=== PATIENT | male | born 1970 | race African-American/Black ===

== ENCOUNTER 2020-04-07 13:34 | Emergency (ER) | payer SELFPAY ==
[~2020-04-07] VITALS: Ht 175 cm; Wt 200.0 kg
[2020-04-07] MEDS ORDERED: cefTRIAXone 500 MG/1.43 ML vial (IM ONLY) IM ONE (15:00)
[2020-04-07] MEDS ORDERED: LIDOCAINE 1% INJ 20 ML 20 ML VIAL INJ ONE (15:00)
[2020-04-07] MEDS ORDERED: AZITHROMYCIN 250 MG TAB (ZITHROMAX) PO ONE (15:00)
--- NOTE | 2020-04-07 15:11 | ED GU-Male ---
General Chief Complaint: Cough/Cold/Flu Symptoms Stated Complaint: COUGH Source: patient Exam Limitations: no limitations History of Present Illness Date Seen by Provider: Apr 07, 2020 Time Seen by Provider: 14:40 Initial Comments The patient presents to the ER by private conveyance with chief complaint that he woke up yesterday with a right swollen testicle. He says is happened once before with trauma when he was a child. He denies ever having STDs. No dysuria discharge or lesions. No fevers chills shortness of air nausea vomiting loss of sense of taste or smell, diarrhea constipation or abdominal pain. No sick contacts. 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 He does have a history of hypertension for which he is on 4 different blood pressure medicines. He remembers lisinopril and amlodipine. He has not establish care with a primary care physician yet. He is sexually active although he says has been a minute. He prefers the company of females. He does claim to have an occasional dry nonproductive cough that he attributes to smoking it is no worse than normal. Allergies and Home Medications Allergies Coded Allergies: No Known Drug Allergies (Unverified , 04/07/20) Home Medications Amlodipine Besylate 5 Mg Tablet, 5 MG PO DAILY Prescribed by: AIYANA MUÑOZ on 04/07/20 1522 Doxycycline Hyclate 100 Mg Tablet, 100 MG PO BID Prescribed by: AIYANA MUÑOZ on 04/07/20 1522 Hydrocodone/Acetaminophen 1 Each Tablet, 1 EACH PO Q6H PRN for PAIN-BREAKTHROUGH Prescribed by: AIYANA MUÑOZ on 04/07/20 1523 Patient Home Medication List Home Medication List Reviewed: Yes Review of Systems Review of Systems Constitutional: No chills, No diaphoresis EENTM: No ear pain, No eye pain Respiratory: No cough, No short of breath Cardiovascular: see HPI; No edema, No Hx of Intervention, No palpitations Gastrointestinal: No abdominal pain, No nausea, No vomiting Genitourinary: see HPI; denies burning, denies discharge, denies dysuria; pain (r teste) All Other Systemes Reviewed Negative Unless Noted: Yes Past Uhnddec-Cluugi-Sstnfm Hx Patient Social History Alcohol Use: Denies Use Recreational Drug Use: No Smoking Status: Current Everyday Smoker Physical Exam Vital Signs Vital Signs - First Documented 04/07/20 15:19 Temp 36.7 Pulse 96 Resp 14 B/P (MAP) 139/67 (91) Pulse Ox 98 O2 Delivery Room Air Capillary Refill : Height, Weight, BMI Height: '" Weight: lbs. oz. kg; BMI Method: General Appearance: no apparent distress, obese HEENT: PERRL/EOMI, pharynx normal Neck: non-tender, full range of motion Cardiovascular: normal peripheral pulses, regular rate, rhythm Respiratory: lungs clear, normal breath sounds, no respiratory distress, no accessory muscle use Gastrointestinal: non tender, soft Male: testicular tenderness (Right enlarged approximately the size of a orange), other (No lesions, discharge, tenderness in the left testicle or penis.) Neurologic/Psychiatric: alert, normal mood/affect, oriented x 3 Skin: normal color, warm/dry Progress/Results/Core Measures Suspected Sepsis SIRS Temperature: Pulse: Respiratory Rate: Blood Pressure / Mean: Results/Orders Lab Results Laboratory Tests Test 04/07/20 14:53 04/07/20 15:02 Range/Units Urine Color YELLOW Urine Clarity CLEAR Urine pH 6.5 5-9 Urine Specific Lindstrom 1.020 1.016-1.022 Urine Protein NEGATIVE NEGATIVE Urine Glucose (UA) NEGATIVE NEGATIVE Urine Ketones NEGATIVE NEGATIVE Urine Nitrite NEGATIVE NEGATIVE Urine Bilirubin NEGATIVE NEGATIVE Urine Urobilinogen 0.2 < = 1.0 MG/DL Urine Leukocyte Esterase NEGATIVE NEGATIVE Urine RBC (Auto) NEGATIVE NEGATIVE Urine RBC NONE /HPF Urine WBC NONE /HPF Urine Squamous Epithelial Cells 5-10 /HPF Urine Crystals NONE /LPF Urine Bacteria NEGATIVE /HPF Urine Casts NONE /LPF Urine Mucus NEGATIVE /LPF Urine Culture Indicated NO My Orders Orders - AIYANA MUÑOZ Ceftriaxone For Im Use (Rocephin For Im (04/07/20 15:00) Azithromycin Tablet (Zithromax Tablet) (04/07/20 15:00) Lidocaine 1% Inj 20 Ml (Xylocaine 1% Inj (04/07/20 15:00) Chlamydia Trachomatis Urine (04/07/20 14:59) Neis Ender Dna Urine Test (04/07/20 14:59) Ua Culture If Indicated (04/07/20 14:59) Syphilis Antibody Screen (04/07/20 15:02) Medications Given in ED Current Medications Medications Dose Ordered Sig/Chrissie Route Start Time Stop Time Status Last Admin Dose Admin Azithromycin 1,000 mg ONCE ONCE PO 04/07/20 15:00 04/07/20 15:01 DC 04/07/20 15:57 1,000 MG Ceftriaxone Sodium 500 mg ONCE ONCE IM 04/07/20 15:00 04/07/20 15:01 DC 04/07/20 15:57 500 MG Lidocaine HCl 1 ml ONCE ONCE INJ 04/07/20 15:00 04/07/20 15:01 DC 04/07/20 15:57 1 ML Vital Signs/I&O 04/07/20 15:19 Temp 36.7 Pulse 96 Resp 14 B/P (MAP) 139/67 (91) Pulse Ox 98 O2 Delivery Room Air Capillary Refill : Progress Note : Time: 15:09 Progress Note We offered a COVID-19 swab and he declined. He does not seem to be having any acute respiratory issues at this time. We will obtain urine, STD testing and give him a dose of Rocephin, azithromycin and put him out on doxycycline for possible orchitis. We offered to transfer him to a facility that had ultrasound available today and encouraged him to go but he declined. We will provide him with a opportunity to get an ultrasound Thursday outpatient and he is okay with that plan. We also offered to refill his amlodipine although initial blood pressure of 130s over 60s is acceptable control. We will give him a list of the local physicians. Departure Impression Primary Impression: Swollen testicle Additional Impression: Hypertension Qualified Codes: I10 - Essential (primary) hypertension Disposition: HOME, SELF-CARE Condition: Stable Departure-Patient Inst. Decision time for Depature: 16:10 Referrals: NO,LOCAL PHYSICIAN (PCP/Family) Primary Care Physician Patient Instructions: Epididymitis (DC), LOCAL PHYSICIAN LIST Add. Discharge Instructions: Drink plenty of fluids. Warm moist heat may be helpful. Tylenol 1000 mg every 8 hours as necessary for pain. Ibuprofen 800 mg every 8 hours as necessary for pain. Hydrocodone 1 tablet every 6 hours as necessary for severe pain. Hydrocodone will cause constipation and drowsiness. Doxycycline 1 tablet twice a day for the next 10 days. It is imperative that you call Thursday and schedule an ultrasound of the testicle. Return to the ER if you are having intractable pain, fever or nausea. Over the next 2 to 3 days someone will call you if your lab tests are positive. Continue taking the antibiotics. All discharge instructions reviewed with patient and/or family. Voiced understanding. Scripts Doxycycline Hyclate (Doxycycline Hyclate) 100 Mg Tablet 100 MG PO BID for 10 Days, #20 TAB 0 Refills Prov: AIYANA MUÑOZ 04/07/20 Amlodipine Besylate (Amlodipine Besylate) 5 Mg Tablet 5 MG PO DAILY for 14 Days, #14 TAB 0 Refills Prov: AIYANA MUÑOZ 04/07/20 Hydrocodone/Acetaminophen (Hydrocodone-Acetamin 5-325 mg) 1 Each Tablet 1 EACH PO Q6H PRN for PAIN-BREAKTHROUGH, #10 TAB 0 Refills Prov: AIYANA MUÑOZ 04/07/20 AIYANA MUÑOZ Apr 07, 2020 15:11
[2020-04-07] MEDS ORDERED: DOXY100T2 PO (15:22)
[2020-04-07] MEDS ORDERED: AMLO-250 PO (15:22)
[2020-04-07] MEDS ORDERED: ACHD5005 PO (15:22)
[2020-04-07 15:24] LABS: BILIRUBIN,URINE NEGATIVE (NEGATIVE); CLARITY,URINE CLEAR; COLOR,URINE YELLOW; GLUCOSE, URINE (UA) NEGATIVE (NEGATIVE); KETONES,URINE NEGATIVE (NEGATIVE); LEUKOCYTE ESTERASE ,URINE NEGATIVE (NEGATIVE); NITRITE,URINE NEGATIVE (NEGATIVE); PH,URINE 6.5 (5-9); PROTEIN,URINE NEGATIVE (NEGATIVE)
[2020-04-07 15:31] LABS: BACTERIA,URINE NEGATIVE /HPF
[2020-04-07 16:40] VITALS: BP 139/67
== END 2020-04-07 16:41 | disposition home or self-care (01) ==
LOC: EDUNIT# 13:34 → ER 13:36
DX: N50.89 Other specified disorders of the male genital organs (principal); I10 Essential (primary) hypertension; E66.9 Obesity, unspecified; F17.200 Nicotine dependence, unspecified, uncomplicated
CPT/HCPCS: 36415; 81000; 86780; 87491; 87591; 99284

== ENCOUNTER → 2020-04-09 | Outpatient (CLI) | payer SELFPAY ==
[~2020-04-09] MED LIST: ACHD5005 PO; AMLO-250 PO; DOXY100T2 PO
--- NOTE | 2020-04-09 11:49 | Diagnostic Imaging Report ---
PROCEDURE: US Scrotum w/ Duplex TECHNIQUE: Multiple realtime carrera images were obtained of the scrotum in various projections bilaterally. Color Doppler images were also obtained. INDICATION: Right testicular swelling. COMPARISON: None. FINDINGS: The testicles are normal in size, shape and echogenicity. The right testis measures 4.0 x 2.6 x 2.7 cm. The left testis measures 4.6 x 2.1 x 2.4 cm. There is normal color flow Doppler signal of both testicles. No focal testicular mass is seen on either side. The right and left epididymides are unremarkable. There is no sonographic evidence of epididymitis. A large hydrocele is seen on the right. IMPRESSION: 1. Large right-sided hydrocele, likely representing the patient's history of right testicular swelling. 2. Unremarkable sonographic appearance of the testicles. No evidence of focal mass or torsion. Dictated by: Dictated on workstation # [id number]
== END ==
LOC: RAD 10:34
PROVIDERS: ATTEND Emergency Medicine
DX: N43.3 Hydrocele, unspecified (principal); N50.89 Other specified disorders of the male genital organs
CPT/HCPCS: 76870

== ENCOUNTER 2020-04-12 14:33 | Emergency (ER) | payer SELFPAY ==
[~2020-04-12] VITALS: Ht 176 cm; Wt 145.0 kg
--- NOTE | 2020-04-12 15:01 | ED GU-Male ---
General Stated Complaint: TESTICULAR SWELLING Source: patient Exam Limitations: no limitations History of Present Illness Date Seen by Provider: Apr 12, 2020 Time Seen by Provider: 14:53 Initial Comments Patient is a 49-year-old male who presents to the emergency department today with a chief complaint of significant scrotal swelling. Patient was seen here in the emergency department 1 week ago and had an outpatient ultrasound performed on 09 April. This ultrasound showed a right-sided hydrocele very large with Doppler signal to both testicles no evidence of testicular mass and normal epididymides bilaterally. This hydrocele is primarily right-sided. Patient states that he is not really having significant worsening of his pain but it is quite uncomfortable. He states he has been wearing briefs style underwear. He is not been taking any NSAIDs for discomfort. Patient states he has been using ice to the groin. He is currently finishing up a prescription of doxycycline. No other complaints of illness or injury. All other review of systems reviewed and negative except as stated. Timing/Duration: getting worse Severity/Quality: moderate Location: scrotal Radiation: none Activities at Onset: none Prior Genitourinary Problems: none Sexual [place] History: not active Associated Symptoms: denies symptoms Allergies and Home Medications Allergies Coded Allergies: No Known Drug Allergies (Unverified , 04/07/20) Home Medications Amlodipine Besylate 5 Mg Tablet, 5 MG PO DAILY Prescribed by: AIYANA MUÑOZ on 04/07/20 1522 Doxycycline Hyclate 100 Mg Tablet, 100 MG PO BID Prescribed by: AIYANA MUÑOZ on 04/07/20 1522 Hydrocodone/Acetaminophen 1 Each Tablet, 1 EACH PO Q6H PRN for PAIN-BREAKTHROUGH Prescribed by: AIYANA MUÑOZ on 04/07/20 1523 Patient Home Medication List Home Medication List Reviewed: Yes Review of Systems Review of Systems Constitutional: see HPI EENTM: no symptoms reported Respiratory: no symptoms reported Cardiovascular: no symptoms reported Gastrointestinal: no symptoms reported Genitourinary: other (Scrotal swelling) Musculoskeletal: no symptoms reported Skin: no symptoms reported Past Dfrkzor-Grxtll-Zlkmml Hx Patient Social History Type Used: Cigarettes Recent Foreign Travel: No Contact w/Someone Who Travel: No Recent Hopitalizations: No Seasonal Allergies Seasonal Allergies: No Past Medical History Surgeries: No Respiratory: No Cardiac: Yes Hypertension Neurological: No Genitourinary: No Gastrointestinal: No Musculoskeletal: No Endocrine: No HEENT: No Cancer: No Psychosocial: No Integumentary: No Blood Disorders: No Physical Exam Vital Signs Capillary Refill : Height, Weight, BMI Height: '" Weight: lbs. oz. kg; 65.00 BMI Method: General Appearance: WD/WN, no apparent distress Cardiovascular: regular rate, rhythm Respiratory: lungs clear, normal breath sounds Gastrointestinal: non tender, soft Male: normal genitalia, other (Significantly swollen scrotum, it is difficult to palpate either testes secondary to the amount of edema present; no significant tenderness on palpation) Extremities: non-tender, normal inspection, no pedal edema Neurologic/Psychiatric: alert, normal mood/affect Skin: normal color, warm/dry Progress/Results/Core Measures Suspected Sepsis SIRS Temperature: Pulse: Respiratory Rate: Blood Pressure / Mean: Results/Orders Vital Signs/I&O Capillary Refill : Progress Note : Time: 15:10 Progress Note Discussed with Dr. Zepeda; he recommends another ultrasound to further evaluate the testicles; he did say that I could offer aspiration of the hydrocele to the patient. The patient respectfully declined. He also does not want to be sent to another facility for an testicular ultrasound today. He prefers to wait for another couple of days and see what happens. The patient has not been on NSAIDs I recommended that he start taking these. I am going to give him contact information for urology for Thursday to call for an appointment. The patient is comfortable with this plan of care. I told him if things worsen over the course of the next 24 to 48 hours to please come back to the emergency room or make his way to [place] to [facility] or [facility] as they have ultrasound 24 hours a day. He verbalizes understanding of this, all questions are sought and answered. Patient is stable for discharge. Departure Communication (Admissions) Time/Spoke to Consulting Phy: 15:[address] Zepeda; will see as an outpatient Impression Primary Impression: Hydrocele in adult Disposition: 01 HOME, SELF-CARE Condition: Stable (ERASED) Departure-Patient Inst. Decision time for Depature: 15:09 Referrals: NO,LOCAL PHYSICIAN (PCP) Primary Care Physician JEN CONDE MD Patient Instructions: Hydrocele Add. Discharge Instructions: Take [id number] Aleve, 2 pills in the morning with food and 2 pills at night with food. Continue to wear tight briefs underwear. You can apply ice packs for 20 minutes at a time 3-4 times a day as well. Finish off your antibiotics as prescribed. I have given you an outpatient order for a repeat ultrasound on Thursday here at this facility. But should you have any significant worsening over the next few days please come back to the emergency room for reevaluation and transfer to a center that has ultrasound capabilities and urology. BERYL KIRAN MD Apr 12, 2020 15:00
[2020-04-12 15:02] VITALS: BP 185/102
== END 2020-04-12 15:20 | disposition home or self-care (01) ==
LOC: EDUNIT# 14:33 → ER 14:36
DX: N43.3 Hydrocele, unspecified (principal); I10 Essential (primary) hypertension
CPT/HCPCS: 99281

== ENCOUNTER 2022-03-16 11:40 | Inpatient (IN) | payer SELFPAY ==
[~2022-03-16] VITALS: Ht 170.1 cm; Wt 163.0 kg
[2022-03-16] MEDS ORDERED: NS IV 500 ML 500 ML IV ONE (12:00)
[2022-03-16 12:03] LABS: BASOPHILS % (AUTO) 0 % (0-10); EOSINOPHILS # (AUTO) 0.3 10^3/uL (0.0-0.3); EOSINOPHILS % (AUTO) 4 % (0-10); HEMATOCRIT 45 % (40-54); HEMOGLOBIN 15.4 g/dL (13.3-17.7); LYMPHOCYTES % (AUTO) 15 % (12-44); MEAN CORPUSCULAR HEMOGLOBIN 31 pg (25-34); MEAN CORPUSCULAR HGB CONC 34 g/dL (32-36); MEAN CORPUSCULAR VOLUME 91 fL (80-99); MEAN PLATELET VOLUME 10.1 fL (9.0-12.2); MONOCYTES # (AUTO) 0.8 10^3/uL (0.0-1.0); MONOCYTES % (AUTO) 12 % (0-12); NEUTROPHILS # (AUTO) 4.6 10^3/uL (1.8-7.8); NEUTROPHILS % (AUTO) 69 % (42-75); PLATELET COUNT 171 10^3/uL (130-400); WHITE BLOOD COUNT 6.7 10^3/uL (4.3-11.0)
[2022-03-16] MEDS ORDERED: BENZONATATE 100 MG (TESSALON) CAPSULE PO STA (12:09)
--- NOTE | 2022-03-16 12:09 | ED Respiratory ---
General Chief Complaint: Respiratory Problems Stated Complaint: DIFFICULTY BREATHING Nursing Triage Note: COLD/COUGH FOR 3 WEEKS IN LAST 2 DAYS STARTED HAVING EXTREME SOB. History of Present Illness Date Seen by Provider: Mar 16, 2022 Time Seen by Provider: 11:40 Initial Comments 51-year-old -Latvian male presents for shortness of breath and cough that has been occurring for the last 3 weeks. He reports over the last 2 days he has had extreme shortness of breath. He has a history of sleep apnea, no other reported medical conditions. Denies chest pain, asthma or chronic respiratory problems. He does not have a primary care provider. He reports inability to sleep last night and did not use his CPAP. He does have a produ ctive cough. His initial SaO2 on room air was 81%, attempted nasal cannula at 3 to 4 L with minimal improvement so converted to oxygen mask at 5 L with SaO2 93- 95%. He denies having COVID or influenza vaccination. Timing/Duration: getting worse Severity: moderate Prior Episodes/Possible Cause: occasional episodes Modifying Factors: Improves With Coughing, Improves With Lying Down, Improves With Rest Associated Symptoms: No chest pain/soreness; cough (Productive); No dizziness, No earache, No facial pain, No fever/chills, No headache, No lightheadedness; muscle aches; No nasal congestion, No nasal drainage; shortness of breath; No sinus infection, No sore throat, No wheezing Allergies and Home Medications Allergies Coded Allergies: No Known Drug Allergies (Unverified , 03/16/22) Patient Home Medication List Home Medication List Reviewed: Yes Amlodipine Besylate (Amlodipine Besylate) 5 Mg Tablet, 5 MG PO DAILY Prescribed by: AIYANA MUÑOZ on 04/07/201521 Doxycycline Hyclate (Doxycycline Hyclate) 100 Mg Tablet, 100 MG PO BID Prescribed by: AIYANA MUÑOZ on 04/07/20 152 Hydrocodone/Acetaminophen (Hydrocodone-Acetamin 5-325 mg) 1 Each Tablet, 1 EACH PO Q6H PRN for PAIN-BREAKTHROUGH Prescribed by: AIYANA MUÑOZ on 04/07/20 152 Review of Systems Review of Systems Constitutional: see HPI, malaise, weakness EENTM: see HPI, no symptoms reported Respiratory: see HPI, cough, dyspnea on exertion, phlegm, short of breath Cardiovascular: no symptoms reported, see HPI; No chest pain Gastrointestinal: no symptoms reported, see HPI; No abdominal pain, No constipation, No diarrhea; loss of appetite; No nausea, No vomiting Genitourinary: no symptoms reported, see HPI Musculoskeletal: no symptoms reported, see HPI Skin: no symptoms reported, see HPI All Other Systems Reviewed Negative Unless Noted: Yes Past Afftuhf-Tvsbad-Gxtcsp Hx Patient Social History Tobacco Use?: Yes Tobacco type used: Cigarettes Use of E-Cig and/or Vaping dev: No Substance use?: No Alcohol Use?: No Pt feels they are or have been: No Immunizations Up To Date Influenza Vaccine Up-to-Date: No; Not Current First/Initial COVID19 Vaccinat: NOT VACCINATED Seasonal Allergies Seasonal Allergies: No Past Medical History Surgery/Hospitalization HX: SLEEP APNEA C PAP Surgeries: No Respiratory: No Cardiac: Yes Hypertension Neurological: No Genitourinary: No Gastrointestinal: No Musculoskeletal: No Endocrine: No HEENT: No Cancer: No Psychosocial: No Integumentary: No Blood Disorders: No Family Medical History Reviewed Nursing Family Hx Physical Exam Vital Signs - First Documented 03/16/22 11:42 Temp 36.3 Pulse 112 Resp 22 B/P (MAP) 146/92 (110) Pulse Ox 93 O2 Delivery Room Air O2 Flow Rate 5.00 Capillary Refill : Height: '" Weight: lbs. oz. kg; 54.00 BMI Method: General Appearance: mild distress, obese Eyes: Bilateral Eye Normal Inspection, Bilateral Eye PERRL, Bilateral Eye EOMI HEENT: PERRL/EOMI, normal ENT inspection, TMs normal, pharynx normal Neck: non-tender, full range of motion, supple, normal inspection Respiratory: chest non-tender, decreased breath sounds Cardiovascular: normal peripheral pulses, regular rate, rhythm, tachycardia (100-108) Gastrointestinal: normal bowel sounds, non tender, soft, distended Extremities: normal range of motion (with mild limitations due to body habitus), non-tender, pedal edema (2+) Neurologic/Psychiatric: no motor/sensory deficits, alert, normal mood/affect, oriented x 3 Skin: normal color, warm/dry Progress/Results/Core Measures Suspected Sepsis SIRS Temperature: Pulse: 112 Respiratory Rate: 22 Laboratory Tests 03/16/22 11:50: White Blood Count 6.7 Blood Pressure 146 /92 Mean: 110 Laboratory Tests 03/16/22 11:50: Creatinine 1.28, INR Comment 1.0, Platelet Count 171, Total Bilirubin 1.0 Results/Orders Lab Results Laboratory Tests Test 03/16/22 11:45 03/16/22 11:50 03/16/22 12:20 Range/Units Influenza Type A (RT-PCR) Not Detected Not Detecte Influenza Type B (RT-PCR) Not Detected Not Detecte SARS-CoV-2 RNA (RT-PCR) Not Detected Not Detecte White Blood Count 6.7 4.3-11.0 10^3/uL Red Blood Count 4.97 4.30-5.52 10^6/uL Hemoglobin 15.4 13.3-17.7 g/dL Hematocrit 45 40-54 % Mean Corpuscular Volume 91 80-99 fL Mean Corpuscular Hemoglobin 31 25-34 pg Mean Corpuscular Hemoglobin Concent 34 32-36 g/dL Red Cell Distribution Width 13.6 10.0-14.5 % Platelet Count 171 130-400 10^3/uL Mean Platelet Volume 10.1 9.0-12.2 fL Immature Granulocyte % (Auto) 0 % Neutrophils (%) (Auto) 69 42-75 % Lymphocytes (%) (Auto) 15 12-44 % Monocytes (%) (Auto) 12 0-12 % Eosinophils (%) (Auto) 4 0-10 % Basophils (%) (Auto) 0 0-10 % Neutrophils # (Auto) 4.6 1.8-7.8 10^3/uL Lymphocytes # (Auto) 1.0 1.0-4.0 10^3/uL Monocytes # (Auto) 0.8 0.0-1.0 10^3/uL Eosinophils # (Auto) 0.3 0.0-0.3 10^3/uL Basophils # (Auto) 0.0 0.0-0.1 10^3/uL Immature Granulocyte # (Auto) 0.0 0.0-0.1 10^3/uL Prothrombin Time 13.4 12.2-14.7 SEC INR Comment 1.0 0.8-1.4 Activated Partial Thromboplast Time 29 24-35 SEC Sodium Level 143 135-145 MMOL/L Potassium Level 3.5 L 3.6-5.0 MMOL/L Chloride Level 105 98-107 MMOL/L Carbon Dioxide Level 25 21-32 MMOL/L Anion Gap 13 5-14 MMOL/L Blood Urea Nitrogen 12 7-18 MG/DL Creatinine 1.28 0.60-1.30 MG/DL Estimat Glomerular Filtration Rate 69 BUN/Creatinine Ratio 9 Glucose Level 170 H 70-105 MG/DL Calcium Level 8.7 8.5-10.1 MG/DL Corrected Calcium 8.8 8.5-10.1 MG/DL Total Bilirubin 1.0 0.1-1.0 MG/DL Aspartate Amino Transf (AST/SGOT) 26 5-34 U/L Alanine Aminotransferase (ALT/SGPT) 40 0-55 U/L Alkaline Phosphatase 86 40-136 U/L Lactate Dehydrogenase 225 H 125-220 U/L C-Reactive Protein High Sensitivity 1.18 H 0.00-0.50 MG/DL B-Type Natriuretic Peptide 193.8 H <100.0 PG/ML Total Protein 7.3 6.4-8.2 GM/DL Albumin 3.9 3.2-4.5 GM/DL Procalcitonin 0.07 <0.10 NG/ML Blood Gas Puncture Site LW Blood Gas Patient Temperature 36.6 Arterial Blood pH 7.34 *L 7.37-7.43 Arterial Blood Partial Pressure CO2 57 H 35-45 MMHG Arterial Blood Partial Pressure O2 61 L 79-93 MMHG Arterial Blood HCO3 30 H 23-27 MMOL/L Arterial Blood Total CO2 31.4 H 21.0-31.0 MMOL/L Arterial Blood Oxygen Saturation 94 94-100 % Arterial Blood Base Excess 4.1 H -2.5-2.5 MMOL/L Jed Test YES-POS Blood Gas Ventilator Setting NO Blood Gas Inspired Oxygen 2L My Orders Orders - PREET LA Cbc With Automated Diff (03/16/22 11:50) Comprehensive Metabolic Panel (03/16/22 11:50) Procalcitonin (Pct) (03/16/22 11:50) Hs C Reactive Protein (03/16/22 11:50) LDH (03/16/22 11:50) Sputum Culture (03/16/22 11:50) Ekg Tracing (03/16/22 11:50) Influenza A And B By Pcr (03/16/22 11:50) Chest 1 View, Ap/Pa Only (03/16/22 11:50) Covid-19 Suspect Update (03/16/22 11:50) Covid 19 Inhouse Test (03/16/22 11:50) Bnp Dieter (03/16/22 11:50) Protime With Inr (03/16/22 11:50) Partial Thromboplastin Time (03/16/22 11:50) Arterial Blood Gas (03/16/22 11:53) Ed Iv/Invasive Line Start (03/16/22 11:53) Ns Iv 500 Ml (Sodium Chloride 0.9%) (03/16/22 12:00) Albuterol Inhaler (Albuterol) (03/16/22 14:00) Benzonatate Capsule (Tessalon Perles) (03/16/22 12:09) Albuterol Inhaler (Albuterol) (03/16/22 12:14) Ua Culture If Indicated (03/16/22 12:48) Methylprednisolone Sod Succ (Solu-Medrol (03/16/22 13:00) Medications Given in ED Current Medications Medications Dose Ordered Sig/Chrissie Route Start Time Stop Time Status Last Admin Dose Admin Sodium Chloride 500 ml @ 0 mls/hr Q0M ONCE IV 03/16/22 12:00 03/16/22 12:01 DC 03/16/22 12:18 500 MLS/HR Vital Signs/I&O 03/16/22 03/16/22 11:42 11:42 Temp 36.3 Pulse 112 Resp 22 B/P (MAP) 146/92 (110) Pulse Ox 93 O2 Delivery Room Air OxyMask O2 Flow Rate 5.00 Capillary Refill : Blood Pressure Mean: 110 Progress Note : Time: 11:40 Progress Note Patient seen and evaluated, stabilized with oxime mask keeping SaO2 greater than 90%. Will obtain labs, chest x-ray, ABGs. Respiratory therapy noted high for possible BiPAP. 1200 SaO2 continuing at 96 to 98% with oxime mask, will convert to nasal cannula at 2 L. Patient able to maintain greater than 95%, decreased to 1 L and continuing to be stable. Heart rate has been decreased to 95-100. 1220 Ventolin inhaler, 2 puffs. Noted better air movement but wheezing. B/P with wrist cuff 230s/140s, with extra large arm cuff 160s/110s. Will give Lasix and Hydralazine, then re-assess before additional B/P meds. 1240 Dr. Mcfarlane in ED to see patient. Will admit to ICU. COVID, Flu negative. No Pneumonia per CXR. Glucose 170 and patient reports no food or fluids for last 24 hours. 1320 patient urinated multiple times after Lasix, SaO2 would decrease to upper 80s with mobility but remained 92-95% with NC at 1L and rest. Patient denies any complaints. 1400 patient transferred to ICU. ECG Initial ECG Impression Date: Mar 16, 2022 Initial ECG Impression Time: 11:54 Initial ECG Rate: 104 Initial ECG Rhythm: S.Tach Initial ECG Intervals: Normal Initial ECG Intervals GA 148, QRS D 92, QT 377, QTc 437. [place] P 70, RR 105, T 90. Initial ECG Impression: Normal Initial ECG Comparisson: No Previous ECG Available Diagnostic Imaging Diagonstic Imaging: Xray Plain Films/CT/US/NM/MRI: chest Comments NAME: ASIF ENRIQUEZ [facility] REC#: [id number] PT STATUS: REG ER : 1970 PHYSICIAN: PREET LA ADMIT DATE: 03/16/22/ER Draft Date of Exam:03/16/22 CHEST 1 VIEW, AP/PA ONLY EXAMINATION: Chest 1 view HISTORY: Hypoxia, cough, SOA COMPARISON: None available. FINDINGS: Heart size and pulmonary vasculature are mildly enlarged. There are diffuse interstitial opacities throughout both lungs. No pleural effusion or pneumothorax. The osseous structures are intact. IMPRESSION: 1. Cardiomegaly and pulmonary vasculature congestion with diffuse interstitial opacities are both lungs. Findings can be seen with pulmonary edema or atypical infection. Dictated on workstation # [id number] Dict: 03/16/22 1227 Trans: 03/16/22 1238 [id number] Interpreted by: RIKI GOMEZ DO Electronically signed by: Departure Impression Primary Impression: Hypoxemia Additional Impressions: Cough Qualified Codes: R05.1 - Acute cough Hypertension Qualified Codes: I10 - Essential (primary) hypertension Sleep apnea Qualified Codes: G47.30 - Sleep apnea, unspecified Obesities, morbid Hyperglycemia Disposition: 09 ADMITTED INPATIENT Condition: Stable Admissions Decision to Admit/Date: Mar 16, 2022 Time/Decision to Admit Time: 12:30 Departure-Patient Inst. Referrals: [facility]/Isabel NO,LOCAL PHYSICIAN (PCP) Primary Care Physician PREET LA Mar 16, 2022 12:09
[2022-03-16] MEDS ORDERED: RT-ALBUTEROL HFA 8.5 GM INHALER IH ONE (12:14)
[2022-03-16 12:15] LABS: PROTHROMBIN TIME PATIENT 13.4 SEC (12.2-14.7)
[2022-03-16] MEDS: RT-ALBUTEROL HFA 8.5 GM INHALER IH SCH ×3 (12:19→22:56)
[2022-03-16 12:23] LABS: ALBUMIN 3.9 GM/DL (3.2-4.5); CALCIUM 8.7 MG/DL (8.5-10.1); CREATININE SERUM 1.28 MG/DL (0.60-1.30); POTASSIUM 3.5 MMOL/L (3.6-5.0); TOTAL PROTEIN 7.3 GM/DL (6.4-8.2)
[2022-03-16 12:30] LABS: ABG BASE EXCESS 4.1 MMOL/L (-2.5-2.5); ABG OXYGEN SATURATION 94 % (94-100); ABG PCO2 57 MMHG (35-45); ABG PO2 61 MMHG (79-93); ABG TCO2 31.4 MMOL/L (21.0-31.0)
[2022-03-16 12:32] LABS: ALLENS TEST YES-POS; INSPIRED O2 2L; PATIENT TEMP 36.6; VENTILATOR NO
[2022-03-16 12:37] LABS: ABG PH 7.34 (7.37-7.43)
--- NOTE | 2022-03-16 12:38 | Diagnostic Imaging Report ---
EXAMINATION: Chest 1 view HISTORY: Hypoxia, cough, SOA COMPARISON: None available. FINDINGS: Heart size and pulmonary vasculature are mildly enlarged. There are diffuse interstitial opacities throughout both lungs. No pleural effusion or pneumothorax. The osseous structures are intact. IMPRESSION: 1. Cardiomegaly and pulmonary vasculature congestion with diffuse interstitial opacities are both lungs. Findings can be seen with pulmonary edema or atypical infection. Dictated by: Dictated on workstation # [id number]
[2022-03-16] MEDS ORDERED: hydrALAZINE (APESOLINE) 20 MG/ML VIAL IV STA (12:56)
[2022-03-16] MEDS ORDERED: methylPREDNISolone 125 MG (Solu-MEDROL) VIAL IVP ONE (13:00)
[2022-03-16] MEDS ORDERED: LABETALOL HCL 20 MG/4 ML VIAL IV STA (13:00)
[2022-03-16] MEDS ORDERED: FUROSEMIDE 40 MG/4 ML INJ (LASIX) IVP ONE ×2 (13:00→18:00)
[2022-03-16] MEDS ORDERED: RT-ALBUTEROL/IPRATROPIUM 3 ML (DUONEB) VIAL INH STA (13:05)
[2022-03-16 13:34] LABS: BILIRUBIN,URINE NEGATIVE (NEGATIVE); CLARITY,URINE CLEAR; COLOR,URINE YELLOW; GLUCOSE, URINE (UA) TRACE (NEGATIVE); KETONES,URINE NEGATIVE (NEGATIVE); LEUKOCYTE ESTERASE ,URINE NEGATIVE (NEGATIVE); NITRITE,URINE NEGATIVE (NEGATIVE); PH,URINE 5.5 (5-9); PROTEIN,URINE TRACE (NEGATIVE)
[2022-03-16 13:45] LABS: BACTERIA,URINE FEW /HPF; RBC,URINE 0-2 /HPF; SQUAMOUS EPITHELIAL CELL,UR 0-2 /HPF
[2022-03-16] MEDS ORDERED: MELATONIN 3 MG TABLET PO PRN (14:15)
[2022-03-16] MEDS ORDERED: diphenhydrAMINE 50 MG/ML INJ (BENADRYL) IVP PRN (14:15)
[2022-03-16] MEDS ORDERED: CALCIUM CARBONATE 500 MG (TUMS) TAB.CHEW PO PRN (14:15)
[2022-03-16] MEDS ORDERED: ONDANSETRON 4 MG (ZOFRAN) ORAL DISSOLVE TAB PO PRN (14:15)
[2022-03-16] MEDS ORDERED: ONDANSETRON 4 MG/2 ML (SDV) Z0FRAN IV PRN (14:15)
[2022-03-16] MEDS ORDERED: polyethylene glycoL POWDER 17 GM (MIRALAX) PACK PO PRN (14:15)
[2022-03-16] MEDS ORDERED: NS IV 500 ML 500 ML IV PRN (14:15)
[2022-03-16] MEDS ORDERED: ANTACID SUSP 30 ML UDC (MYLANTA) PO PRN (14:15)
[2022-03-16] MEDS ORDERED: ACETAMINOPHEN 325 MG TABLET PO PRN (14:15)
[2022-03-16] MEDS ORDERED: LACTULOSE SYRUP 10GM/15ML (ENULOSE) 30ML UDC PO PRN (14:15)
[2022-03-16] MEDS ORDERED: BISACODYL 10 MG SUPP (DULCOLAX) PR PRN (14:15)
[2022-03-16] MEDS ORDERED: PHARMACY TO DOSE SQ SCH (14:15)
[2022-03-16] MEDS ORDERED: diphenhydrAMINE 25 MG TAB (BENADRYL) PO PRN (14:15)
[2022-03-16] MEDS ORDERED: MILK OF MAGNESIA 400 MG/5 ML 30 ML UDC PO PRN (14:15)
[2022-03-16 15:07] VITALS: BP 155/87
[2022-03-16] MEDS: inSUlin ASPART (NovoLOG) 1 UNIT/0.01 ML (CHARGE PER UNIT) SC SCH ×2 (17:55→20:40)
[2022-03-16] MEDS: methylPREDNISolone 40 MG/ML (Solu-MEDROL) VIAL IV SCH (17:56)
[2022-03-16] MEDS: hydrALAZINE (APESOLINE) 20 MG/ML VIAL IV PRN (17:56)
[2022-03-16] MEDS: ENOXAPARIN 60 MG/0.6 ML (LOVENOX) SYR SC SCH (17:56)
--- NOTE | 2022-03-16 18:31 | Tele-ICU Consult ---
History of Present Illness History of Present Illness Date Seen by Provider: Mar 16, 2022 Time Seen by Provider: 15:32 Date of Admission (Tele-ICU Physician , consultation as per request of PCP Service provided via interactive audio and video telecommunadsquare E-CARE system to a patient admitted to ICU bed in [facility]. Available chart/ vitals / labs / Images reviewed H&P is from ER notes Patient's information available about PMH, Shx, Fhx allergy reviewed inEMR. ROS as per chart and RN report Now in ICU, hemodynamically stable Video assessment done using teleICU camera, rest of exam as per RN Discussed with RN. Consultants: Hospital course: A/P HYpoxia on admission and dyspnea - presumed CHF - responded to lasix well - wheezing reported in ER - as per chart , started on steroids Hypertension - BP in ER 230s/140- improved Reported h/o LIO mild resp acidosis on admission - follow closely , CPAP noctrnal Lines : , (Central Line Necessity Reviewed) [place]: OG: Nutrition: Analgesia: Anxiety/ delirium VTE Prophylaxis: tanika 60 q12 Stress Ulcer Prophylaxis: Plans in collaboration with bedside consultants and IM MDs. Discussed with RN to reach out if any questions or concerns A total of 20 minutes of critical care time was devoted to this patient today, required to treat and/or prevent further deterioration of critical care condition ( as above ) . I am remotely monitoring this patient from another state. I am unable to do the bedside exam, and history/physical and pertinent information is taken from other notes in the computer and bedside staff. . Allergies and Home Medications Allergies Coded Allergies: No Known Drug Allergies (Unverified , 03/16/22) Home Medications Amlodipine Besylate 5 Mg Tablet, 5 MG PO DAILY Prescribed by: AIYANA MUÑOZ on 04/07/20 1522 Doxycycline Hyclate 100 Mg Tablet, 100 MG PO BID Prescribed by: AIYANA MUÑOZ on 04/07/20 1522 Hydrocodone/Acetaminophen 1 Each Tablet, 1 EACH PO Q6H PRN for PAIN-BREAKTHROUGH Prescribed by: AIYANA MUÑOZ on 04/07/20 1523 Past Medical/Social/Family Hx Patient Social History Tobacco Use?: Yes Tobacco type used: Cigarettes Smoking Status: Current Everyday Smoker Use of E-Cig and/or Vaping dev: No Substance use?: No Alcohol Use?: No Pt stated abuse/neglect: No Immunizations Up To Date Influenza Vaccine Up-to-Date: No; Not Current First/Initial COVID19 Vaccinat: NOT VACCINATED Current Status Advance Directives: No Communicates: Verbally Primary Language: Ukrainian Preferred Spoken Language: Ukrainian Is interpretation needed?: No Implanted or Applied Medical D: None Review of Systems Constitutional: see HPI Focused Exam Height, Weight, BMI Height: '" Weight: lbs. oz. kg; 54.84 BMI Method: Exam Exam Patient acknowledged, consented, and participated in this virtual visit which was conducted using real time audio/video Vital Signs Date Time Temp Pulse Resp B/P (MAP) Pulse Ox O2 Delivery O2 Flow Rate FiO2 03/16/22 18:00 109 26 92 Nasal Cannula 2.00 03/16/22 17:00 104 23 172/102 (125) 93 Nasal Cannula 2.00 03/16/22 16:00 36.1 03/16/22 16:00 107 18 146/71 (96) 92 Nasal Cannula 2.00 03/16/22 15:21 Nasal Cannula 2.00 03/16/22 15:07 36.3 107 97 03/16/22 15:00 105 18 157/98 (117) 95 Nasal Cannula 2.00 03/16/22 14:50 107 03/16/22 14:49 Nasal Cannula 2.00 03/16/22 14:16 112 16 155/87 97 Nasal Cannula 2.00 2.00 03/16/22 13:33 92 Nasal Cannula 2.00 03/16/22 13:01 36.3 112 22 156/104 (121) 93 Room Air 5.00 5.00 03/16/22 11:42 36.3 112 22 146/92 (110) 93 OxyMask 5.00 03/16/22 11:42 Room Air Height & Weight Height: '" Weight: lbs. oz. kg; 54.84 BMI Method: General Appearance: No Apparent Distress Gastrointestinal: normal bowel sounds, non tender, soft, distended Results Lab Laboratory Tests 03/16/22 11:50 Assessment/Plan Assessment/Plan 1 DOMINGA FERMIN MD Mar 16, 2022 18:31
[2022-03-16] MEDS: DOCUSATE SODIUM 100 MG (COLACE) CAP PO SCH (20:02)
[2022-03-16] MEDS: SENNOSIDES 8.6 MG (SENOKOT) TAB PO SCH (20:03)
[2022-03-16] MEDS: HYDROcodone/APAP 5 MG/325 MG (LORTAB) TAB PO PRN (20:36)
--- NOTE | 2022-03-16 21:04 | History & Physical-Hospitalist ---
History of Present Illness HPI/Chief Complaint Kyle Taylor is a 51 year old male who presented with shortness of breath. He has been feeling sick for the past month. He has been getting more short of breath recently. He has sweling in his legs which moves up to his abdomen. He denies fevers. He denies chest pain. He denies nausea and vomiting. He does not have a primary care doctor. He has a history of LIO but is not compliant with CPAP. Source: patient Exam Limitations: no limitations Date Seen 03/16/22 Time Seen by a Provider: 12:30 Attending Physician No,Local Physician PCP Admitting Physician: Amita Guillen MD Attending Physician: Amita Guillen MD Referring Physician Date of Admission Mar 16, 2022 at 14:15 Home Medications & Allergies Home Medications Reviewed patient Home Medication Reconciliation performed by pharmacy medication reconciliations build technician and/or nursing. Patients Allergies have been reviewed. Allergies Allergies Coded Allergies No Known Drug Allergies (Hkupmyxmrf78/27/22) Past Mmmjjrb-Gpmrss-Byqavb Hx Patient Social History Tobacco Use?: Yes Tobacco type used: Cigarettes Smoking Status: Current Everyday Smoker Use of E-Cig and/or Vaping dev: No Substance use?: No Alcohol Use?: No Pt feels they are or have been: No Immunizations Up To Date First/Initial COVID19 Vaccinat: NOT VACCINATED Seasonal Allergies Seasonal Allergies: No Current Status Advance Directives: No Communicates: Verbally Primary Language: Central African Preferred Spoken Language: Central African Is interpretation needed?: No Implanted or Applied Medical D: None Past Medical History Hypertension Blood Disorders: No Family Medical History Reviewed Nursing Family Hx No Pertinent Family Hx Review of Systems Constitutional: no symptoms reported EENTM: no symptoms reported Respiratory: dyspnea on exertion, short of breath, wheezing Cardiovascular: no symptoms reported Gastrointestinal: no symptoms reported Physical Exam Physical Exam Vital Signs Vital Signs - First Documented 03/16/22 11:42 Temp 36.3 Pulse 112 Resp 22 B/P (MAP) 146/92 (110) Pulse Ox 93 O2 Delivery Room Air O2 Flow Rate 5.00 Capillary Refill : Height, Weight, BMI Height: '" Weight: lbs. oz. kg; 54.84 BMI Method: General Appearance: Moderate Distress (tachypnea), Obese HEENT: PERRL/EOMI, Pharynx Normal Neck: Normal Inspection, Supple Respiratory: Decreased Breath Sounds, Respiratory Distress (tachypnea), Wheezing Cardiovascular: No Murmur, Tachycardia Gastrointestinal: Normal Bowel Sounds, Non Tender, Soft, Other (abdominal wall edema) Extremity: Non Tender, Pedal Edema, Swelling Neurologic/Psychiatric: Alert, Motor Weakness Skin: Normal Color, Warm/Dry Results Results/Procedures Labs Laboratory Tests 03/16/22 11:50 Patient resulted labs reviewed. Imaging: Reviewed Imaging Films, Reviewed Imaging Report Assessment/Plan Admission Diagnosis Acute respiratory failure with hypoxia and hypercapnia Admission Status: Inpatient Order (span 2 midnights) Reason for Inpatient Admission: Respiratory failure Assessment and Plan Acute respiratory failure with hypoxia and hypercapnia CHF COPD HTN Super obesity CXR with pulmonary edema Lasix Echo ordered BiPAP at night Steroids MAT protocol Supplemental oxygen as needed Hydralazine as needed Hyperglycemia A1C ordered Sliding scale insulin DVT prophylaxis: Lovenox Critical Care Critically Ill Patient Diagnosis/Problems Diagnosis/Problems (1) Acute respiratory failure with hypoxia and hypercapnia Status: Acute (2) CHF (congestive heart failure) Status: Acute (3) COPD (chronic obstructive pulmonary disease) Status: Acute (4) Super obesity Status: Chronic (5) HTN (hypertension) Status: Acute (6) Hyperglycemia Status: Acute (7) Sleep apnea Status: Acute Qualifiers: Sleep apnea type: unspecified type Qualified Codes: G47.30 - Sleep apnea, unspecified AMITA GUILLEN MD Mar 16, 2022 21:04
[2022-03-16 23:14] VITALS: BP 157/94
[2022-03-17] MEDS: methylPREDNISolone 40 MG/ML (Solu-MEDROL) VIAL IV SCH ×4 (00:56→17:02)
[2022-03-17 02:56] VITALS: BP 157/94
[2022-03-17] MEDS: RT-ALBUTEROL HFA 8.5 GM INHALER IH SCH ×2 (02:56→07:35)
[2022-03-17 05:09] LABS: BASOPHILS % (AUTO) 0 % (0-10); EOSINOPHILS % (AUTO) 0 % (0-10); HEMATOCRIT 45 % (40-54); HEMOGLOBIN 15.2 g/dL (13.3-17.7); LYMPHOCYTES # (AUTO) 0.4 10^3/uL (1.0-4.0); LYMPHOCYTES % (AUTO) 5 % (12-44); MEAN CORPUSCULAR HEMOGLOBIN 31 pg (25-34); MEAN CORPUSCULAR HGB CONC 34 g/dL (32-36); MEAN CORPUSCULAR VOLUME 93 fL (80-99); MEAN PLATELET VOLUME 10.7 fL (9.0-12.2); MONOCYTES # (AUTO) 0.2 10^3/uL (0.0-1.0); MONOCYTES % (AUTO) 2 % (0-12); NEUTROPHILS % (AUTO) 92 % (42-75); PLATELET COUNT 183 10^3/uL (130-400); WHITE BLOOD COUNT 8.7 10^3/uL (4.3-11.0)
[2022-03-17 05:33] LABS: CALCIUM 8.9 MG/DL (8.5-10.1); CREATININE SERUM 1.36 MG/DL (0.60-1.30); POTASSIUM 4.8 MMOL/L (3.6-5.0)
[2022-03-17] MEDS: FUROSEMIDE 40 MG/4 ML INJ (LASIX) IVP SCH ×2 (06:01→16:54)
[2022-03-17] MEDS: ENOXAPARIN 60 MG/0.6 ML (LOVENOX) SYR SC SCH ×2 (06:01→17:02)
[2022-03-17] MEDS: inSUlin ASPART (NovoLOG) 1 UNIT/0.01 ML (CHARGE PER UNIT) SC SCH ×4 (06:02→21:24)
[2022-03-17 06:11] LABS: LYMPHOCYTES % (MANUAL) 5 %; MONOCYTES % (MANUAL) 2 %; NEUTROPHILS % (MANUAL) 93 %; RBC MORPH NORMAL
[2022-03-17] MEDS: MAGNESIUM 1 GM/100 ML IVPB 100 ML IV SCH (07:32)
[2022-03-17] MEDS: POTASSIUM CL 10MEQ/50ML IVPB 50 ML IV SCH (07:32)
[2022-03-17] MEDS: KCL 20 MEQ TAB (K-DUR) PO SCH (07:33)
[2022-03-17] MEDS: DOCUSATE SODIUM 100 MG (COLACE) CAP PO SCH ×2 (08:16→21:24)
[2022-03-17] MEDS: SENNOSIDES 8.6 MG (SENOKOT) TAB PO SCH ×2 (08:16→21:24)
[2022-03-17] MEDS: hydrALAZINE (APESOLINE) 20 MG/ML VIAL IV PRN ×2 (08:16→12:03)
--- NOTE | 2022-03-17 08:58 | Progress Note - Hospitalist ---
Subjective HPI/CC On Admission Date Seen by Provider: Mar 17, 2022 Kyle Taylor is a 51 year old male who presented with shortness of breath. He has been feeling sick for the past month. He has been getting more short of breath recently. He has sweling in his legs which moves up to his abdomen. He denies fevers. He denies chest pain. He denies nausea and vomiting. He does not have a primary care doctor. He has a history of LIO but is not compliant with CPAP. Objective Exam Vital Signs Vital Signs Date Time Temp Pulse Resp B/P (MAP) Pulse Ox O2 Delivery O2 Flow Rate FiO2 03/17/22 08:00 101 17 212/132 (158) 97 NIV Bilevel 40.00 03/17/22 04:05 50 03/17/22 04:00 36.4 Capillary Refill : General Appearance: No Apparent Distress, WD/WN Respiratory: No Accessory Muscle Use, No Respiratory Distress, Wheezing, Other (on BiPAP) Cardiovascular: Regular Rate, Rhythm, No Murmur, Normal Peripheral Pulses Gastrointestinal: Normal Bowel Sounds, Non Tender, Soft Neurologic/Psychiatric: Alert, Oriented x3 Results/Procedures Lab Laboratory Tests 03/16/22 11:50 03/17/22 04:45 Patient resulted labs reviewed. Imaging: Reviewed Imaging Films, Reviewed Imaging Report Assessment/Plan Assessment and Plan Assess & Plan/Chief Complaint Acute respiratory failure with hypoxia and hypercapnia CHF COPD HTN Super obesity CXR with pulmonary edema Lasix -1800mL overnight Echo ordered to be done today Cardiology consulted, appreciate recs- discussed with TRAV Monteiro for Dr Franki Steiner at night and breathing Steroids MAT protocol Supplemental oxygen as needed Hydralazine as needed Hyperglycemia A1C ordered, pending Sliding scale insulin DVT prophylaxis: Lovenox Critical Care Critically Ill Patient LAUREN ISSA MD Mar 17, 2022 08:58
--- NOTE | 2022-03-17 09:19 | Tele-ICU Progress Note ---
Subjective Date Seen by a Provider: Mar 17, 2022 Time Seen by a Provider: 09:19 Subjective/Events-last exam (Tele-ICU Physician , Progress Note ) Service provided via interactive audio and video telecommunications E-CARE system to a patient admitted to ICU bed in [facility]. Available chart/ vitals / labs / Images reviewed Video assessment done using teleICU camera, rest of exam as per RN Discussed with RN Events overnight : Afebrile hemodynamically stable Respiratory - 2L I/O = UO 4 L Drips: none Pressors- no A/P HYpoxia on admission and dyspnea- pulmonaty edema - presumed CHF - responded to lasix well - wheezing reported in ER - as per chart , started on steroids IV 40 q6 - ? to taper down Hypertension - BP in ER 230s/140- improved MARTIN - very mild with diuresis - monitor Reported h/o LIO- not using at home mild resp acidosis on admission - follow closely , CPAP noctrnal AC with lovenox - as per cards consult today Lines : , (Central Line Necessity Reviewed) [place]: OG: Nutrition: Analgesia: Anxiety/ delirium VTE Prophylaxis: tanika 60 q12 Stress Ulcer Prophylaxis: Plans in collaboration with bedside consultants and IM MDs. Discussed with RN to reach out if any questions or concerns A total of 20 minutes of critical care time was devoted to this patient today, required to treat and/or prevent further deterioration of critical care co ndition ( as above ) . I am remotely monitoring this patient from another state. I am unable to do the bedside exam, and history/physical and pertinent information is taken from other notes in the computer and bedside staff. . Sepsis Event Evaluation Height, Weight, BMI Height: '" Weight: lbs. oz. kg; 56.64 BMI Method: Exam Exam Patient acknowledged, consented, and participated in this virtual visit which was conducted using real time audio/video Vital Signs Date Time Temp Pulse Resp B/P (MAP) Pulse Ox O2 Delivery O2 Flow Rate FiO2 03/17/22 08:00 101 17 212/132 (158) 97 NIV Bilevel 40.00 03/17/22 07:43 101 03/17/22 07:35 100 19 96 40.00 03/17/22 07:00 98 9 199/124 (149) 96 NIV Bilevel 40.00 03/17/22 06:51 NIV Bilevel 40.00 03/17/22 06:06 96 8 170/146 (154) 97 NIV Bilevel 50.00 03/17/22 05:00 102 15 131/67 (88) 97 NIV Bilevel 50.00 03/17/22 04:05 NIV Bilevel 50 03/17/22 04:00 105 15 145/83 (103) 97 NIV Bilevel 50.00 03/17/22 04:00 36.4 03/17/22 03:00 104 12 155/82 (106) 99 NIV Bilevel 50.00 03/17/22 02:56 103 28 97 50.00 03/17/22 02:00 105 14 155/91 (112) 98 NIV Bilevel 50.00 03/17/22 01:15 NIV Bilevel 50.00 03/17/22 01:00 106 26 141/74 (96) 98 NIV Bilevel 60.00 03/17/22 01:00 108 03/17/22 00:21 117 26 173/92 (119) 100 NIV Bilevel 60.00 03/17/22 00:00 36.5 03/16/22 23:59 NIV Bilevel 60 03/16/22 23:37 NIV Bilevel 60.00 03/16/22 23:21 113 22 157/94 (115) 96 Nasal Cannula 2.00 03/16/22 23:14 118 28 96 60.00 03/16/22 22:00 108 26 151/113 (126) 92 Nasal Cannula 2.00 03/16/22 21:00 113 30 134/103 (113) 94 Nasal Cannula 2.00 03/16/22 20:34 115 162/100 (120) 94 Nasal Cannula 2.00 03/16/22 20:00 Nasal Cannula 2.00 03/16/22 20:00 36.6 03/16/22 19:00 116 187/114 (138) 94 Nasal Cannula 2.00 03/16/22 19:00 116 03/16/22 18:29 94 Room Air 03/16/22 18:00 109 26 92 Nasal Cannula 2.00 03/16/22 17:00 104 23 172/102 (125) 93 Nasal Cannula 2.00 03/16/22 16:00 36.1 03/16/22 16:00 107 18 146/71 (96) 92 Nasal Cannula 2.00 03/16/22 15:21 Nasal Cannula 2.00 03/16/22 15:07 36.3 107 97 03/16/22 15:00 105 18 157/98 (117) 95 Nasal Cannula 2.00 03/16/22 14:50 107 03/16/22 14:49 Nasal Cannula 2.00 03/16/22 14:16 112 16 155/87 97 Nasal Cannula 2.00 2.00 03/16/22 13:33 92 Nasal Cannula 2.00 03/16/22 13:01 36.3 112 22 156/104 (121) 93 Room Air 5.00 5.00 03/16/22 11:42 36.3 112 22 146/92 (110) 93 OxyMask 5.00 03/16/22 11:42 Room Air I & O 03/17/22 07:00 Intake Total 2105 ml Output Total 4275 ml Balance -2170 ml Height & Weight Height: '" Weight: lbs. oz. kg; 56.64 BMI Method: General Appearance: No Apparent Distress, WD/WN HEENT: PERRL/EOMI, Pharynx Normal Neck: Normal Inspection, Supple Respiratory: No Accessory Muscle Use, No Respiratory Distress, Wheezing, Other (on BiPAP) Cardiovascular: Regular Rate, Rhythm, No Murmur, Normal Peripheral Pulses Gastrointestinal: normal bowel sounds, non tender, soft, distended Extremity: Non Tender, Pedal Edema, Swelling Neurologic/Psychiatric: Alert, Oriented x3 Skin: Normal Color, Warm/Dry Results Lab Laboratory Tests 03/16/22 11:50 03/17/22 04:45 Assessment/Plan Assessment/Plan 1 DOMINGA FERMIN MD Mar 17, 2022 09:19
[2022-03-17] MEDS ORDERED: meTOprolol SUCCINATE 100 MG (TOPROL XL) TAB PO NR (09:30)
[2022-03-17] MEDS ORDERED: ASPIRIN 81 MG CHEW (CHILDREN'S ASA) PO NR (09:30)
[2022-03-17] MEDS ORDERED: RT-ALBUTEROL HFA 8.5 GM INHALER IH PRN (10:00)
[2022-03-17] MEDS: RT-ALBUTEROL/IPRATROPIUM 3 ML (DUONEB) VIAL INH SCH ×4 (10:34→22:06)
[2022-03-17 10:57] VITALS: BP 195/81
--- NOTE | 2022-03-17 13:06 | Consultation-Cardiology ---
HPI-Cardiology Cardiology Consultation: Date of Consultation 03/17/22 Time Seen by a Provider: 09:15 Date of Admission Attending Physician No,Local Physician Admitting Physician Admitting Physician: Amita Mcfarlane MD Attending Physician: Amita Mcfarlane MD Consulting Physician OVIDIO RING MD, MA, FACP, FACC, FSCAI, CCDS Physician requesting consult: Dr Garza HPI: Chief Complaint: Reason for Card consult: CHF 51 yo man admitted to [facility] (Dr Mcfarlane / Dr Garza) on 03/16/22 with increasing shortness of breath for several days. No n/v/d. No cp. No palp or syncope. Chronic, mild to mod, bilat leg swelling. Gen weakness and malaise Review of Systems-Cardiology Review of Systems Constitutional: As described under HPI Eyes: No vision change Ears/Nose/Throat: No ear discharge, No nasal drainage, No recent hearing loss Respiratory: As described under HPI Cardiovascular: As described under HPI Gastrointestinal: As described under HPI Genitourinary: No dysuria, No hematuria Musculoskeletal: back pain (chronic); No joint pain Skin: No rash, No ulcerations Psychiatric/Neurological: No seizure, No focal weakness, No syncope Hematologic: No bleeding abnormalities All Other Systems Reviewed Negative Unless Noted: Yes [id number] Hx Patient Social History Smoking Status: Current Everyday Smoker Have you traveled recently?: No Alcohol Use?: No Pt feels they are or have been: No Tobacco type used: Cigarettes Past Medical History PMH As described under Assessment. Family Medical History Family Medical History: He does not report fam h/o early CAD or SCD Allergies and Home Medications Allergies Coded Allergies: No Known Drug Allergies (Unverified , 03/16/22) Patient Home Medication List Home Medication List Reviewed: Yes No Active Prescriptions or Reported Meds Physical Exam-Cardiology Physical Exam Vital Signs/I&O 03/17/22 03/17/22 03/17/22 03/17/22 01:15 02:00 02:56 03:00 Pulse 105 103 104 Resp 14 28 12 B/P (MAP) 155/91 (112) 155/82 (106) Pulse Ox 98 97 99 O2 Delivery NIV Bilevel NIV Bilevel NIV Bilevel O2 Flow Rate 50.00 50.00 50.00 50.00 03/17/22 03/17/22 03/17/22 03/17/22 04:00 04:00 04:05 05:00 Temp 36.4 Pulse 105 102 Resp 15 15 B/P (MAP) 145/83 (103) 131/67 (88) Pulse Ox 97 97 O2 Delivery NIV Bilevel NIV Bilevel NIV Bilevel O2 Flow Rate 50.00 50.00 FiO2 50 03/17/22 03/17/22 03/17/22 03/17/22 06:06 06:51 07:00 07:35 Pulse 96 98 100 Resp 8 9 19 B/P (MAP) 170/146 (154) 199/124 (149) Pulse Ox 97 96 96 O2 Delivery NIV Bilevel NIV Bilevel NIV Bilevel O2 Flow Rate 50.00 40.00 40.00 40.00 03/17/22 03/17/22 03/17/22 03/17/22 07:43 08:00 08:00 09:00 Pulse 101 101 106 Resp 17 12 B/P (MAP) 212/132 (158) 182/109 (133) Pulse Ox 97 97 O2 Delivery NIV Bilevel NIV Bilevel NIV Bilevel O2 Flow Rate 40.00 40.00 FiO2 40 03/17/22 03/17/22 03/17/22 03/17/22 10:34 10:45 10:47 10:49 Pulse 110 38 112 Resp 17 B/P (MAP) 195/81 (119) Pulse Ox 94 93 O2 Delivery Nasal Cannula NIV Bilevel O2 Flow Rate 2.00 40.00 03/17/22 03/17/22 03/17/22 03/17/22 10:57 11:00 11:15 11:30 Pulse 109 93 105 99 Resp 18 11 18 21 B/P (MAP) 214/132 (159) 196/115 (142) 206/122 (150) Pulse Ox 96 91 89 96 O2 Delivery NIV Bilevel NIV Bilevel NIV Bilevel O2 Flow Rate 40.00 40.00 40.00 40.00 03/17/22 03/17/22 11:45 12:00 Pulse 101 104 Resp 27 19 B/P (MAP) 260/145 (183) 205/118 (147) Pulse Ox 97 97 O2 Delivery NIV Bilevel NIV Bilevel O2 Flow Rate 40.00 40.00 03/17/22 00:00 Intake Total 2105 ml Output Total 3925 ml Balance -1820 ml Capillary Refill : Constitutional: AAO x 3, well-developed, well-nourished, other (pbese) HEENT: PERRL; No xanthelasmas are seen Neck: carotid pulses are 2 + bilaterally, with good upstrokes Respiratory: No accessory muscle use; other (good, bilat air entry) Cardiovascular: regular rate-rhythm, S1 and S2, systolic murmur (soft SAMEER at card base) Gastrointestinal: No tender; soft; No guarding, No rebound; audible bowel sounds Extremities: swelling (mild to mod, bilateral leg edema); No clubbing, No cyanosis Neurologic/Psychiatric: oriented x 3, other (moves all limbs equally) Skin: No rash on exposed areas, No ulcerations on exposed areas Data Review Labs Laboratory Tests 03/16/22 13:20: Urine Color YELLOW, Urine Clarity CLEAR, Urine pH 5.5, Urine Specific [place] >=1.030, Urine Protein TRACEH, Urine Glucose (UA) TRACEH, Urine Ketones NEGATIVE, Urine Nitrite NEGATIVE, Urine Bilirubin NEGATIVE, Urine Urobilinogen 0.2, Urine Leukocyte Esterase NEGATIVE, Urine RBC (Auto) NEGATIVE, Urine RBC 0- 2, Urine WBC 5-10H, Urine Squamous Epithelial Cells 0-2, Urine Crystals NONE, Urine Bacteria FEWH, Urine Casts NONE, Urine Mucus NEGATIVE, Urine Culture Indicated YES 03/16/22 15:52: Glucometer 195H 03/16/22 20:35: Glucometer 353H 03/17/22 01:20: Troponin I < 0.028 03/17/22 04:45: White Blood Count 8.7, Red Blood Count 4.87, Hemoglobin 15.2, Hematocrit 45, Mean Corpuscular Volume 93, Mean Corpuscular Hemoglobin 31, Mean Corpuscular Hemoglobin Concent 34, Red Cell Distribution Width 13.8, Platelet Count 183, Mean Platelet Volume 10.7, Immature Granulocyte % (Auto) 1, Neutrophils (%) (Auto) 92H, Lymphocytes (%) (Auto) 5L, Monocytes (%) (Auto) 2, Eosinophils (%) (Auto) 0, Basophils (%) (Auto) 0, Neutrophils # (Auto) 8.0H, Lymphocytes # (Auto) 0.4L, Monocytes # (Auto) 0.2, Eosinophils # (Auto) 0.0, Basophils # (Auto) 0.0, Immature Granulocyte # (Auto) 0.1, Neutrophils % (Manual) 93, Lymphocytes % (Manual) 5, Monocytes % (Manual) 2, Blood Morphology Comment NORMAL, Sodium Level 138, Potassium Level 4.8, Chloride Level 102, Carbon Dioxide Level 22, Anion Gap 14, Blood Urea Nitrogen 17, Creatinine 1.36H, Estimat Glomerular Filtration Rate 64, BUN/Creatinine Ratio 13, Glucose Level 209H, Calcium Level 8.9, Magnesium Level 2.0 03/17/22 10:51: Glucometer 358H Microbiology 03/16/22 Urine Culture - Preliminary, Resulted NO GROWTH 03/16/22 Gram Stain - Final, Resulted 03/16/22 Sputum Culture, Resulted Pending Laboratory Tests 03/16/22 11:50 03/17/22 04:45 A/P-Cardiology Assessment/Admission Diagnosis Ac diastolic CHF, likely due to hypertensive CVD - echo on 03/17/22: LVEF 50-55%, mild biatrial enlargement Severe htn and HCVD Suspected sleep apnea Obesity with suspected obesity-hypoventilation syndrome Discussion and Recomendations * Treat CHF with diuretics * Treat hypertension with beta-demetrius * Advised cessation of tobacco use * Advised sleep studies * Monitor labs * Further recs based on hosp course OVIDIO RING MD [facility] CCDS Mar 17, 2022 13:06
[2022-03-17] MEDS ORDERED: meTOprolol SUCCINATE 100 MG (TOPROL XL) TAB PO ONE (13:15)
[2022-03-17] MEDS ORDERED: amLODIPine 10 MG (NORVASC) TAB PO NR (13:30)
[2022-03-17] MEDS ORDERED: doxAzosin 4 MG (CARDURA) TAB PO NR (16:45)
[2022-03-17] MEDS: meTOprolol SUCCINATE 100 MG (TOPROL XL) TAB PO SCH (21:24)
[2022-03-17] MEDS: HYDROcodone/APAP 5 MG/325 MG (LORTAB) TAB PO PRN (21:27)
[2022-03-18] MEDS: methylPREDNISolone 40 MG/ML (Solu-MEDROL) VIAL IV SCH ×4 (00:40→17:10)
[2022-03-18] MEDS: RT-ALBUTEROL/IPRATROPIUM 3 ML (DUONEB) VIAL INH SCH ×6 (02:36→22:36)
[2022-03-18 02:37] VITALS: BP 137/81
[2022-03-18 05:41] LABS: BASOPHILS % (AUTO) 0 % (0-10); EOSINOPHILS % (AUTO) 0 % (0-10); HEMATOCRIT 44 % (40-54); HEMOGLOBIN 14.7 g/dL (13.3-17.7); LYMPHOCYTES # (AUTO) 0.5 10^3/uL (1.0-4.0); LYMPHOCYTES % (AUTO) 5 % (12-44); MEAN CORPUSCULAR HEMOGLOBIN 31 pg (25-34); MEAN CORPUSCULAR HGB CONC 33 g/dL (32-36); MEAN CORPUSCULAR VOLUME 95 fL (80-99); MEAN PLATELET VOLUME 10.8 fL (9.0-12.2); MONOCYTES # (AUTO) 0.5 10^3/uL (0.0-1.0); MONOCYTES % (AUTO) 6 % (0-12); NEUTROPHILS # (AUTO) 7.5 10^3/uL (1.8-7.8); NEUTROPHILS % (AUTO) 88 % (42-75); PLATELET COUNT 176 10^3/uL (130-400); WHITE BLOOD COUNT 8.5 10^3/uL (4.3-11.0)
[2022-03-18 06:05] LABS: CALCIUM 8.9 MG/DL (8.5-10.1); CREATININE SERUM 1.53 MG/DL (0.60-1.30); MAGNESIUM 2.1 MG/DL (1.6-2.4); POTASSIUM 4.4 MMOL/L (3.6-5.0)
[2022-03-18 06:06] LABS: PHOSPHORUS 5.3 MG/DL (2.3-4.7)
[2022-03-18] MEDS: FUROSEMIDE 40 MG/4 ML INJ (LASIX) IVP SCH ×2 (06:08→17:09)
[2022-03-18] MEDS: inSUlin ASPART (NovoLOG) 1 UNIT/0.01 ML (CHARGE PER UNIT) SC SCH ×4 (06:08→21:12)
[2022-03-18] MEDS: ENOXAPARIN 60 MG/0.6 ML (LOVENOX) SYR SC SCH ×2 (06:08→17:10)
[2022-03-18] MEDS: KCL 20 MEQ TAB (K-DUR) PO SCH (06:10)
[2022-03-18] MEDS: POTASSIUM CL 10MEQ/50ML IVPB 50 ML IV SCH (06:10)
[2022-03-18] MEDS: MAGNESIUM 1 GM/100 ML IVPB 100 ML IV SCH (06:10)
[2022-03-18 07:12] VITALS: BP 144/92
[2022-03-18] MEDS: meTOprolol SUCCINATE 100 MG (TOPROL XL) TAB PO SCH ×2 (07:54→20:41)
[2022-03-18] MEDS: ASPIRIN 81 MG CHEW (CHILDREN'S ASA) PO SCH (07:54)
[2022-03-18] MEDS: DOCUSATE SODIUM 100 MG (COLACE) CAP PO SCH ×2 (07:54→20:39)
[2022-03-18] MEDS: amLODIPine 10 MG (NORVASC) TAB PO SCH (07:55)
[2022-03-18] MEDS: SENNOSIDES 8.6 MG (SENOKOT) TAB PO SCH ×2 (07:55→20:39)
[2022-03-18] MEDS: HYDROcodone/APAP 5 MG/325 MG (LORTAB) TAB PO PRN ×2 (09:36→20:45)
--- NOTE | 2022-03-18 11:40 | Progress Note - Cardiology ---
Cardiology SOAP Progress Note Objective: I&O/Vital Signs 03/18/22 03/18/22 03/18/22 03/18/22 20:00 20:00 20:12 21:15 Temp 36.6 36.6 Pulse 90 91 Resp 16 B/P (MAP) 120/66 (84) Pulse Ox 95 O2 Delivery High Flow N/C High Flow N/C O2 Flow Rate 2.00 2.00 03/19/22 03/19/22 03/19/22 03/19/22 00:12 01:00 02:31 04:00 Temp 36.6 36.4 Pulse 84 88 88 81 Resp 20 19 20 B/P (MAP) 138/70 (92) 156/98 (117) Pulse Ox 93 96 98 O2 Delivery Room Air NIV Bilevel O2 Flow Rate 40.00 03/19/22 07:00 Pulse 89 03/19/22 00:00 Intake Total 1450 ml Output Total 1050 ml Balance 400 ml Constitutional: AAO x 3, well-developed, well-nourished, other (pbese) Respiratory: No accessory muscle use; other (good, bilat air entry) Cardiovascular: regular rate-rhythm, S1 and S2, systolic murmur (soft SAMEER at card base) Gastrointestional: No tender; soft; No guarding, No rebound; audible bowel sounds Extremities: swelling (mild to mod, bilateral leg edema); No clubbing, No cyanosis Neurologic/Psychiatric: oriented x 3, other (moves all limbs equally) Skin: No rash on exposed areas, No ulcerations on exposed areas Results/Procedures: Labs Laboratory Tests 03/18/22 10:52: Glucometer 306H 03/18/22 16:36: Glucometer 276H 03/18/22 20:50: Glucometer 316H 03/19/22 05:33: Glucometer 252H 03/19/22 06:50: White Blood Count 8.7, Red Blood Count 4.84, Hemoglobin 15.1, Hematocrit 45, Mean Corpuscular Volume 93, Mean Corpuscular Hemoglobin 31, Mean Corpuscular Hemoglobin Concent 33, Red Cell Distribution Width 13.3, Platelet Count 178, Mean Platelet Volume 11.0, Immature Granulocyte % (Auto) 1, Neutrophils (%) (Auto) 89H, Lymphocytes (%) (Auto) 5L, Monocytes (%) (Auto) 5, Eosinophils (%) (Auto) 0, Basophils (%) (Auto) 0, Neutrophils # (Auto) 7.7, Lymphocytes # (Auto) 0.4L, Monocytes # (Auto) 0.5, Eosinophils # (Auto) 0.0, Basophils # (Auto) 0.0, Immature Granulocyte # (Auto) 0.1, Sodium Level 136, Potassium Level 4.2, Chloride Level 98, Carbon Dioxide Level 27, Anion Gap 11, Blood Urea Nitrogen 33H, Creatinine 1.52H, Estimat Glomerular Filtration Rate 56, BUN/Creatinine Ratio 22, Glucose Level 223H, Calcium Level 8.7, Phosphorus Level 4.6, Magnesium Level 2.2 Microbiology 03/16/22 MRSA Screen - Final, Complete MRSA not isolated 03/16/22 Urine Culture - Final, Complete Gram Pos Mixed Bacterial Nevin A/P: Assessment: Ac diastolic CHF, likely due to hypertensive CVD - echo on 03/17/22: LVEF 50-55%, mild biatrial enlargement Severe htn and HCVD Suspected sleep apnea Obesity with suspected obesity-hypoventilation syndrome Plan: * Treat CHF with diuretics * BP has improved with multi-drug regimen * continue current regimen * Advised cessation of tobacco use * Advised sleep studies as out pt * Monitor labs * Further recs based on hosp course VASU BECERRA Mar 18, 2022 11:40
--- NOTE | 2022-03-18 11:59 | Progress Note - Hospitalist ---
Subjective HPI/CC On Admission Date Seen by Provider: Mar 18, 2022 Kyle Taylor is a 51 year old male who presented with shortness of breath. He has been feeling sick for the past month. He has been getting more short of breath recently. He has sweling in his legs which moves up to his abdomen. He denies fevers. He denies chest pain. He denies nausea and vomiting. He does not have a primary care doctor. He has a history of LIO but is not compliant with CPAP. Subjective/Events-last exam Pt reports doing well. Breating better. No complaints. Objective Exam Vital Signs Vital Signs Date Time Temp Pulse Resp B/P (MAP) Pulse Ox O2 Delivery O2 Flow Rate FiO2 03/18/22 10:00 89 18 139/86 (103) 93 Nasal Cannula 2.00 03/18/22 08:00 36.5 03/18/22 04:22 40 Capillary Refill : Less Than 3 Seconds General Appearance: No Apparent Distress, WD/WN, Obese Respiratory: Lungs Clear, No Accessory Muscle Use, No Respiratory Distress Cardiovascular: Regular Rate, Rhythm, No Murmur Extremity: No Calf Tenderness, No Pedal Edema Neurologic/Psychiatric: Alert, Oriented x3 Results/Procedures Lab Laboratory Tests 03/18/22 05:15 Patient resulted labs reviewed. Imaging: Reviewed Imaging Films, Reviewed Imaging Report Assessment/Plan Assessment and Plan Assess & Plan/Chief Complaint Acute respiratory failure with hypoxia and hypercapnia CHF COPD HTN Super obesity CXR with pulmonary edema Lasix -2.5L total Echo with diastolic dysfunction and preserved EF Cardiology consulted, appreciate recs- discussed with TRAV Monteiro for Dr Fidel curran BiPAP at night and breathing - will need outpatient sleep study Steroids MAT protocol Supplemental oxygen as needed Hydralazine as needed Doing well, hopefully home tomorrow- transfer to [facility] Hyperglycemia A1C 7.1 Sliding scale insulin DVT prophylaxis: Lovenox Critical Care Critically Ill Patient LAUREN ISSA MD Mar 18, 2022 11:59
[2022-03-18] MEDS ORDERED: MTP100TCR PO ×2 (14:17)
[2022-03-18] MEDS ORDERED: ASPI81TA64 PO (14:17)
[2022-03-18] MEDS ORDERED: TRIA1CAP84 PO (14:17)
[2022-03-18] MEDS ORDERED: AMLO-251 PO (14:17)
--- NOTE | 2022-03-18 14:54 | Progress Note - Cardiology ---
Cardiology SOAP Progress Note Subjective: Feels better Shortness of breath has improved No cp or palp or syncop No n/v/d No focal weakness Objective: I&O/Vital Signs 03/18/22 03/18/22 03/18/22 03/18/22 03:00 04:00 04:21 04:22 Temp 36.8 Pulse 82 80 Resp 11 17 B/P (MAP) 125/73 (90) 126/73 (90) Pulse Ox 96 94 O2 Delivery NIV Bilevel NIV Bilevel NIV Bilevel NIV Bilevel O2 Flow Rate 40.00 40.00 40.00 FiO2 40 03/18/22 03/18/22 03/18/22 03/18/22 05:00 06:00 07:00 07:12 Pulse 84 87 85 84 Resp 9 19 B/P (MAP) 131/88 (102) 142/93 (109) Pulse Ox 100 97 98 O2 Delivery NIV Bilevel NIV Bilevel O2 Flow Rate 40.00 40.00 40.00 03/18/22 03/18/22 03/18/22 03/18/22 07:47 07:56 08:00 08:16 Temp 36.5 36.5 Pulse 85 Resp 17 B/P (MAP) 136/82 (100) Pulse Ox 90 O2 Delivery Nasal Cannula Nasal Cannula Nasal Cannula O2 Flow Rate 2.00 2.00 2.00 03/18/22 03/18/22 03/18/22 03/18/22 09:00 09:59 10:00 12:00 Temp 36.4 Pulse 86 89 89 Resp 17 18 16 B/P (MAP) 132/81 (98) 139/86 (103) 144/88 (106) Pulse Ox 92 95 93 94 O2 Delivery Nasal Cannula Nasal Cannula Nasal Cannula O2 Flow Rate 2.00 2.00 2.00 03/18/22 03/18/22 03/18/22 13:00 13:00 13:44 Pulse 82 90 Resp 19 B/P (MAP) 122/72 (89) Pulse Ox 95 93 O2 Delivery Nasal Cannula Nasal Cannula O2 Flow Rate 2.00 2.00 03/18/22 00:00 Intake Total 1690 ml Output Total 1125 ml Balance 565 ml Constitutional: AAO x 3, well-developed, well-nourished, other (pbese) Respiratory: No accessory muscle use; other (good, bilat air entry) Cardiovascular: regular rate-rhythm, S1 and S2, systolic murmur (soft SAMEER at card base) Gastrointestional: No tender; soft; No guarding, No rebound; audible bowel sounds Extremities: swelling (mild to mod, bilateral leg edema); No clubbing, No cyanosis Neurologic/Psychiatric: oriented x 3, other (moves all limbs equally) Skin: No rash on exposed areas, No ulcerations on exposed areas Results/Procedures: Labs Laboratory Tests 03/17/22 16:59: Glucometer 287H 03/17/22 20:52: Glucometer 274H 03/18/22 05:15: White Blood Count 8.5, Red Blood Count 4.70, Hemoglobin 14.7, Hematocrit 44, Mean Corpuscular Volume 95, Mean Corpuscular Hemoglobin 31, Mean Corpuscular Hemoglobin Concent 33, Red Cell Distribution Width 14.0, Platelet Count 176, Mean Platelet Volume 10.8, Immature Granulocyte % (Auto) 0, Neutrophils (%) (Auto) 88H, Lymphocytes (%) (Auto) 5L, Monocytes (%) (Auto) 6, Eosinophils (%) (Auto) 0, Basophils (%) (Auto) 0, Neutrophils # (Auto) 7.5, Lymphocytes # (Auto) 0.5L, Monocytes # (Auto) 0.5, Eosinophils # (Auto) 0.0, Basophils # (Auto) 0.0, Immature Granulocyte # (Auto) 0.0, Sodium Level 136, Potassium Level 4.4, Chloride Level 97L, Carbon Dioxide Level 26, Anion Gap 13, Blood Urea Nitrogen 27H, Creatinine 1.53H, Estimat Glomerular Filtration Rate 55, BUN/Creatinine Ratio 18, Glucose Level 182H, Calcium Level 8.9, Phosphorus Level 5.3H, Magnesium Level 2.1, Triglycerides Level 68, Cholesterol Level 204H, LDL Cholesterol Direct 141H, VLDL Cholesterol 14, HDL Cholesterol 46 03/18/22 05:38: Glucometer 187H Microbiology 03/16/22 MRSA Screen - Final, Complete MRSA not isolated 03/16/22 Urine Culture - Final, Complete Gram Pos Mixed Bacterial Nevin Laboratory Tests 03/17/22 04:45 03/18/22 05:15 A/P: Assessment: Ac diastolic CHF, likely due to hypertensive CVD - echo on 03/17/22: LVEF 50-55%, mild biatrial enlargement Severe htn and HCVD Obstructive sleep apnea - noncompliant with treatment Obesity with suspected obesity-hypoventilation syndrome Plan: * BP has improved with multi-drug regimen * continue current regimen * add oral diuretic (d/c iv diuretics) * Advised cessation of tobacco use * Advised compliance with CPAP out pt * Outpt cardiac f/u advised OVIDIO RING MD [facility] CCDS Mar 18, 2022 14:54
[2022-03-19 00:12] VITALS: BP 138/70
[2022-03-19] MEDS: methylPREDNISolone 40 MG/ML (Solu-MEDROL) VIAL IV SCH ×3 (00:12→11:33)
[2022-03-19] MEDS: RT-ALBUTEROL/IPRATROPIUM 3 ML (DUONEB) VIAL INH SCH ×3 (02:31→11:00)
[2022-03-19 04:00] VITALS: BP 156/98
[2022-03-19] MEDS: ENOXAPARIN 60 MG/0.6 ML (LOVENOX) SYR SC SCH (05:24)
[2022-03-19] MEDS: FUROSEMIDE 40 MG/4 ML INJ (LASIX) IVP SCH (05:27)
[2022-03-19] MEDS: inSUlin ASPART (NovoLOG) 1 UNIT/0.01 ML (CHARGE PER UNIT) SC SCH ×2 (05:49→11:33)
[2022-03-19 07:11] LABS: BASOPHILS % (AUTO) 0 % (0-10); EOSINOPHILS % (AUTO) 0 % (0-10); HEMATOCRIT 45 % (40-54); HEMOGLOBIN 15.1 g/dL (13.3-17.7); LYMPHOCYTES # (AUTO) 0.4 10^3/uL (1.0-4.0); LYMPHOCYTES % (AUTO) 5 % (12-44); MEAN CORPUSCULAR HEMOGLOBIN 31 pg (25-34); MEAN CORPUSCULAR HGB CONC 33 g/dL (32-36); MEAN CORPUSCULAR VOLUME 93 fL (80-99); MONOCYTES # (AUTO) 0.5 10^3/uL (0.0-1.0); MONOCYTES % (AUTO) 5 % (0-12); NEUTROPHILS # (AUTO) 7.7 10^3/uL (1.8-7.8); NEUTROPHILS % (AUTO) 89 % (42-75); PLATELET COUNT 178 10^3/uL (130-400); WHITE BLOOD COUNT 8.7 10^3/uL (4.3-11.0)
[2022-03-19 07:27] LABS: CALCIUM 8.7 MG/DL (8.5-10.1); CREATININE SERUM 1.52 MG/DL (0.60-1.30); MAGNESIUM 2.2 MG/DL (1.6-2.4); PHOSPHORUS 4.6 MG/DL (2.3-4.7); POTASSIUM 4.2 MMOL/L (3.6-5.0)
[2022-03-19 08:00] VITALS: BP 138/83
[2022-03-19] MEDS: HYDROcodone/APAP 5 MG/325 MG (LORTAB) TAB PO PRN (08:21)
[2022-03-19] MEDS: DOCUSATE SODIUM 100 MG (COLACE) CAP PO SCH (08:21)
[2022-03-19] MEDS: meTOprolol SUCCINATE 100 MG (TOPROL XL) TAB PO SCH (08:22)
[2022-03-19] MEDS: SENNOSIDES 8.6 MG (SENOKOT) TAB PO SCH (08:22)
[2022-03-19] MEDS: ASPIRIN 81 MG CHEW (CHILDREN'S ASA) PO SCH (08:22)
[2022-03-19] MEDS: amLODIPine 10 MG (NORVASC) TAB PO SCH (08:22)
[2022-03-19] MEDS: POTASSIUM CL 10MEQ/50ML IVPB 50 ML IV SCH (08:26)
[2022-03-19] MEDS: KCL 20 MEQ TAB (K-DUR) PO SCH (08:26)
[2022-03-19] MEDS: MAGNESIUM 1 GM/100 ML IVPB 100 ML IV SCH (08:27)
[2022-03-19] MEDS ORDERED: PRD20T PO (10:40)
[2022-03-19] MEDS ORDERED: METF-397 PO (10:40)
--- NOTE | 2022-03-19 10:42 | Discharge Inst-Simple/Standard ---
Discharge Inst-Standard Discharge Medications New, Converted or Re-Newed RX: Transmitted to Pharmacy Patient Instructions/Follow Up Plan of Care/Instructions/FU: Please continue to take your medications as written. Please follow up with your primary care doctor to follow up this hospital stay. Activity as Tolerated: Yes Discharge Diet: Low Sodium Diet Return to The Hospital For: Chest pain, shortness of breath, fever, weakness, if you feel you are getting worse. LAUREN ISSA MD Mar 19, 2022 10:42
--- NOTE | 2022-03-19 10:46 | Discharge Summary ---
Diagnosis/Chief Complaint Date of Admission Mar 16, 2022 at 2:15 pm Date of Discharge Discharge Date: Mar 19, 2022 Admission Diagnosis Acute respiratory failure with hypoxia and hypercapnia Primary Care No,Local Physician Discharge Diagnosis (1) Acute respiratory failure with hypoxia and hypercapnia Status: Acute (2) CHF (congestive heart failure) Status: Acute (3) COPD (chronic obstructive pulmonary disease) Status: Acute (4) Super obesity Status: Chronic (5) HTN (hypertension) Status: Acute (6) Hyperglycemia Status: Acute (7) Sleep apnea Status: Acute Discharge Summary Discharge Physical Exam Allergies: Coded Allergies: No Known Drug Allergies (Unverified , 03/16/22) Vitals & I&Os Vital Signs Date Time Temp Pulse Resp B/P (MAP) Pulse Ox O2 Delivery O2 Flow Rate FiO2 03/19/22 08:21 92 Nasal Cannula 2.00 03/19/22 08:00 36.8 87 20 138/83 (101) 03/18/22 04:22 40 Hospital Course Labs (last 24 hrs) Laboratory Tests 03/18/22 10:52: Glucometer 306H 03/18/22 16:36: Glucometer 276H 03/18/22 20:50: Glucometer 316H 03/19/22 05:33: Glucometer 252H 03/19/22 06:50: White Blood Count 8.7, Red Blood Count 4.84, Hemoglobin 15.1, Hematocrit 45, Mean Corpuscular Volume 93, Mean Corpuscular Hemoglobin 31, Mean Corpuscular Hemoglobin Concent 33, Red Cell Distribution Width 13.3, Platelet Count 178, Mean Platelet Volume 11.0, Immature Granulocyte % (Auto) 1, Neutrophils (%) (Auto) 89H, Lymphocytes (%) (Auto) 5L, Monocytes (%) (Auto) 5, Eosinophils (%) (Auto) 0, Basophils (%) (Auto) 0, Neutrophils # (Auto) 7.7, Lymphocytes # (Auto) 0.4L, Monocytes # (Auto) 0.5, Eosinophils # (Auto) 0.0, Basophils # (Auto) 0.0, Immature Granulocyte # (Auto) 0.1, Sodium Level 136, Potassium Level 4.2, Chloride Level 98, Carbon Dioxide Level 27, Anion Gap 11, Blood Urea Nitrogen 33H, Creatinine 1.52H, Estimat Glomerular Filtration Rate 56, BUN/Creatinine Ratio 22, Glucose Level 223H, Calcium Level 8.7, Phosphorus Level 4.6, Magnesium Level 2.2 Microbiology 03/16/22 MRSA Screen - Final, Complete MRSA not isolated 03/16/22 Urine Culture - Final, Complete Gram Pos Mixed Bacterial Nevin Patient resulted labs reviewed. Pending Labs Laboratory Tests 03/19/22 05:33: Glucometer 252 03/19/22 06:50: White Blood Count 8.7, Red Blood Count 4.84, Hemoglobin 15.1, Hematocrit 45, Mean Corpuscular Volume 93, Mean Corpuscular Hemoglobin 31, Mean Corpuscular Hemoglobin Concent 33, Red Cell Distribution Width 13.3, Platelet Count 178, Mean Platelet Volume 11.0, Immature Granulocyte % (Auto) 1, Neutrophils (%) (Auto) 89, Lymphocytes (%) (Auto) 5, Monocytes (%) (Auto) 5, Eosinophils (%) (Auto) 0, Basophils (%) (Auto) 0, Neutrophils # (Auto) 7.7, Lymphocytes # (Auto) 0.4, Monocytes # (Auto) 0.5, Eosinophils # (Auto) 0.0, Basophils # (Auto) 0.0, Immature Granulocyte # (Auto) 0.1, Sodium Level 136, Potassium Level 4.2, Chloride Level 98, Carbon Dioxide Level 27, Anion Gap 11, Blood Urea Nitrogen 33, Creatinine 1.52, Estimat Glomerular Filtration Rate 56, BUN/Creatinine Ratio 22, Glucose Level 223, Calcium Level 8.7, Phosphorus Level 4.6, Magnesium Level 2.2 Imaging: Reviewed Imaging Films, Reviewed Imaging Report Discharge Home Medications: Active Scripts Active Metformin HCl 500 Mg Tablet 500 Mg PO BID Prednisone 20 Mg Tab 40 Mg PO DAILY Triamterene-Hctz 37.5-25 mg Cp (Triamterene/Hydrochlorothiazid) 37.5 Mg-25 Mg Capsule 1 Each PO DAILY Children's Aspirin (Aspirin) 81 Mg Tab.chew 81 Mg PO DAILY Amlodipine Besylate 10 Mg Tablet 10 Mg PO DAILY Metoprolol Succinate 100 Mg Tab.er.24h 200 Mg PO HS Metoprolol Succinate 100 Mg Tab.er.24h 200 Mg PO DAILY Instructions to patient/family Please see electronic discharge instructions given to patient. Problem Qualifiers (1) Sleep apnea: Sleep apnea type: unspecified type Qualified Codes: G47.30 - Sleep apnea, unspecified LAUREN ISSA MD Mar 19, 2022 10:46 am
--- NOTE | 2022-03-19 10:56 | Physical Therapy Evaluation ---
PT Evaluation-General Medical Diagnosis Admission Date Mar 16, 2022 at 14:15 Medical Diagnosis: Shortness of Breath, LE edema Onset Date: Mar 16, 2022 Therapy Diagnosis Therapy Diagnosis: Gait deficit Precautions Precautions/Isolations: Fall Prevention, Standard Precautions Weight Bear Status Right Lower Extremity: Right Full Weight Bearing Left Lower Extremity: Left Full Weight Bearing Referral Physician: Dr. Garza Reason for Referral: Evaluation/Treatment Medical History Pertinent Medical History: COPD, Heart Failure, HTN Reviewed History: Yes Social History Home: Single Level Current Living Status: Alone Entry Into Home: Stairs With Railing PT Steps Into Home: 4 Prior Prior Level of Function SCALE: Activities may be completed with or without assistive devices. 4-Mylwspgqxk-srotcvs completes the activity by him/herself with no assistance from a helper. 5-Set-up or Clean-up Assistance-helper sets up or cleans up; patient completes activity. [place] assists only prior to or following the activity. 4-Supervision or Touching Assistance-helper provides verbal cues and/or touching/steadying and/or contact guard assistance as patient completes activity. Assistance may be provided throughout the activity or intermittently. 3-Partial/Moderate Assistance-helper does LESS THAN HALF the effort. Hardin lifts, holds or supports trunk or limbs, but provides less than half the effort. 2-Substantial/Maximal Assistance-helper does MORE THAN HALF the effort. Hardin lifts or holds trunk or limbs and provides more than half the effort. 7-Icmykquie-ozjzom does ALL the effort. Patient does none of the effort to complete the activity. Or, the assistance of 2 or more helpers is required for the patient to complete the activity. If activity was not attempted, code reason: 7-Patient Refused. 9-Not Applicable-not attempted and the patient did not perform the activity before the current illness, exacerbation or injury. 10-Not Attempted due to Environmental Limitations-(lack of equipment, weather restraints, etc.). 88-Not Attempted due to Medical Conditions or Safety Concerns. Bed Mobility: 6 Transfers (B,C,W/C): 6 Gait: 6 Stairs: 6 Indoor Mobility (Ambulation): Independent Stairs: Independent Prior Devices Use: None PT Evaluation-Current Subjective Patient sitting in chair upon PT arrival, agreeable to treatment. Patient performs all observed transfers with [place]. Patient ambulates 200 feet with complete independence and no assistive device. Patient ascends/descends 4 steps with SBA and bilateral handrails. Patient ambulates back to room and is up in the chair post treatment with all needs met, nursing notified, call light in hand. Objective Patient Orientation: Person, Place, Time, Situation Attachments: Oxygen ROM/Strength ROM Lower Extremities WFLs bilaterally all planes Strength Lower Extremities 5/5 bilaterally all planes Sensory Vision: Functional Hearing: Functional Sensation Right Lower Extremit: Intact Sensation Left Lower Extremity: Intact Transfers Sit to Stand (QC): 6 Chair/Qoo-px-Rcnfh Xfer(QC): 6 Gait Does the Patient Walk?: Yes Mode of Locomotion: Walk Anticipated Mode of Locomotion: Walk Walk 10 feet (QC): 6 Walk 50 ft with 2 Turns(QC): 6 Walk 150 ft (QC): 6 Distance: 200 Gait Assistive Device: None Stairs #of Steps: 4 1 Step (curb) (QC): 4 4 Steps (QC): 4 Balance Sitting Static: Normal Sitting Dynamic: Normal Standing Static: Good Standing Dynamic: Good Assessment/Needs Patient tolerated evaluation and treatment well. Demonstrates [place] with all observed transfers. Patient ambulates 200 feet with no AD, with independence. Patient ascends/descends 4 steps with [place], with bilat eral handrails. Patient in chair post treatment with all needs met, nursing notified, call light in reach. Rehab Potential: Good PT Plan Problem List Problem List: Activity Tolerance, Safety Treatment/Plan Treatment Plan: Discontinue PT Treatment Duration: Mar 21, 2022 Frequency: Estimated Hrs Per Day: Other Patient and/or Family Agrees t: Yes Safety Risks/Education Patient Education: Gait Training, Transfer Techniques, Steps Teaching Recipient: Patient Teaching Methods: Demonstration, Discussion Response to Teaching: Verbalize Understanding, Return Demonstration Discharge Recommendations Target Placement Home with assistance as needed. Time Time In: 1030 Time Out: 1048 DATE: Mar 19, 2022 Total Billed Treatment Time: 18 Total Billed Treatment Visit, MILAGRO Silver PT Mar 19, 2022 10:56
--- NOTE | 2022-03-19 11:46 | Progress Note - Cardiology ---
Cardiology SOAP Progress Note Subjective: Sitting up in recliner at the bedside States he feels good today Wants to go home Objective: I&O/Vital Signs 03/19/22 03/19/22 03/19/22 03/19/22 00:12 01:00 02:31 04:00 Temp 36.6 36.4 Pulse 84 88 88 81 Resp 20 19 20 B/P (MAP) 138/70 (92) 156/98 (117) Pulse Ox 93 96 98 O2 Delivery Room Air NIV Bilevel O2 Flow Rate 40.00 03/19/22 03/19/22 03/19/22 03/19/22 07:00 08:00 08:00 08:21 Temp 36.8 Pulse 89 87 Resp 20 B/P (MAP) 138/83 (101) Pulse Ox 92 97 92 O2 Delivery Nasal Cannula Room Air Nasal Cannula O2 Flow Rate 2.00 2.00 03/19/22 11:01 Pulse Ox 94 O2 Delivery Nasal Cannula O2 Flow Rate 2.00 03/19/22 00:00 Intake Total 1450 ml Output Total 1050 ml Balance 400 ml Constitutional: AAO x 3, well-developed, well-nourished, other (pbese) Respiratory: No accessory muscle use; other (good, bilat air entry) Cardiovascular: regular rate-rhythm, S1 and S2, systolic murmur (soft SAMEER at card base) Gastrointestional: No tender; soft; No guarding, No rebound; audible bowel sounds Extremities: swelling (mild to mod, bilateral leg edema); No clubbing, No cyanosis Neurologic/Psychiatric: oriented x 3, other (moves all limbs equally) Skin: No rash on exposed areas, No ulcerations on exposed areas Results/Procedures: Labs Laboratory Tests 03/18/22 16:36: Glucometer 276H 03/18/22 20:50: Glucometer 316H 03/19/22 05:33: Glucometer 252H 03/19/22 06:50: White Blood Count 8.7, Red Blood Count 4.84, Hemoglobin 15.1, Hematocrit 45, Mean Corpuscular Volume 93, Mean Corpuscular Hemoglobin 31, Mean Corpuscular Hemoglobin Concent 33, Red Cell Distribution Width 13.3, Platelet Count 178, Mean Platelet Volume 11.0, Immature Granulocyte % (Auto) 1, Neutrophils (%) (Auto) 89H, Lymphocytes (%) (Auto) 5L, Monocytes (%) (Auto) 5, Eosinophils (%) (Auto) 0, Basophils (%) (Auto) 0, Neutrophils # (Auto) 7.7, Lymphocytes # (Auto) 0.4L, Monocytes # (Auto) 0.5, Eosinophils # (Auto) 0.0, Basophils # (Auto) 0.0, Immature Granulocyte # (Auto) 0.1, Sodium Level 136, Potassium Level 4.2, Chloride Level 98, Carbon Dioxide Level 27, Anion Gap 11, Blood Urea Nitrogen 33H, Creatinine 1.52H, Estimat Glomerular Filtration Rate 56, BUN/Creatinine Ratio 22, Glucose Level 223H, Calcium Level 8.7, Phosphorus Level 4.6, Magnesium Level 2.2 03/19/22 10:51: Glucometer 277H Microbiology 03/16/22 MRSA Screen - Final, Complete MRSA not isolated 03/16/22 Urine Culture - Final, Complete Gram Pos Mixed Bacterial Nevin Laboratory Tests 03/18/22 05:15 03/19/22 06:50 A/P: Assessment: Ac diastolic CHF, likely due to hypertensive CVD - echo on 03/17/22: LVEF 50-55%, mild biatrial enlargement Severe htn and HCVD Obstructive sleep apnea - noncompliant with treatment Obesity with suspected obesity-hypoventilation syndrome Plan: * BP well controlled with multi-drug regimen * continue current regimen * Advised cessation of tobacco use * Advised compliance with CPAP out pt * Outpt cardiac f/u advised VASU BECERRA Mar 19, 2022 11:46
[2022-03-19 12:00] VITALS: BP 123/78
[2022-03-19 15:10] VITALS: BP 123/78
== END 2022-03-19 15:10 | disposition home or self-care (01) | DRG 291 ==
LOC: EDUNIT# 11:40 → ER 11:41 → ICU 12:55 → OBSVTOIN 14:15 → 4TH 03-18 18:36
PROVIDERS: ADMIT Internal Medicine; ATTEND Internal Medicine
DX: I11.0 Hypertensive heart disease with heart failure (principal); I50.31 Acute diastolic (congestive) heart failure; J96.01 Acute respiratory failure with hypoxia; J96.02 Acute respiratory failure with hypercapnia; Z68.43 Body mass index [BMI] 50.0-59.9, adult; E66.2 Morbid (severe) obesity with alveolar hypoventilation; E87.29 Other acidosis; N17.9 Acute kidney failure, unspecified; J44.9 Chronic obstructive pulmonary disease, unspecified; F17.210 Nicotine dependence, cigarettes, uncomplicated; R73.9 Hyperglycemia, unspecified; Z20.822 Contact with and (suspected) exposure to COVID-19; Z91.199 Patient's noncompliance with other medical treatment and regimen due to unspecified reason
CPT/HCPCS: 36415; 71045; 80048; 80053; 80061; 81000; 82805; 82947; 83036; 83615; 83735; 83880; 84100; 84145; 84484; 85007; 85025; 85027; 85610; 85730; 86141; 87070; 87081; 87088; 87205; 87636; 93005; 93306; 94640; 94660; 94760; 94761